=== PATIENT | female | born 1940 | race Caucasian/White ===

== ENCOUNTER → 2016-09-19 | Outpatient (CLI) | payer OTHER ==
[~2016-09-19] MED LIST: ACET500T57 PO; ASPI81TA28 PO; ATOR-24 PO; GLIP-197 PO; METO25TA56 PO; MISC4CAP PO; SITA50TA5
[2016-09-19 10:15] LABS: ALT/SGPT 32 U/L (12-78); BLOOD UREA NITROGEN 14 mg/dl (7-18); BUN/CREATININE RATIO 20.1 (10-20); CALCIUM 9.5 mg/dl (8.5-10.1); CARBON DIOXIDE 27 mmol/L (21-32); CHLORIDE 104 mmol/L (98-107); CHOLESTEROL 104 mg/dl (0-200); CREATININE 0.71 mg/dl (0.60-1.20); GLUCOSE 183 mg/dl (70-99); POTASSIUM 4.2 mmol/L (3.5-5.1); SODIUM 140 mmol/L (136-145)
[2016-09-19 10:18] LABS: ALB/GLOB RATIO 1.1 (0.9-2); ALKALINE PHOSPHATASE 52 U/L (45-117); AST/SGOT 37 U/L (15-37); ESTIMATED AVERAGE GLUCOSE 194 mg/dl; HA1C FLAG Normal (Normal); HDL CHOLESTEROL 35 mg/dl; LDL CHOLESTEROL CALCULATED 1 mg/dl; TRIGLYCERIDES 339 mg/dl (0-150); VERY LOW DENSITY LIPOPROT CALC 68 mg/dl
== END | disposition home or self-care (01) ==
LOC: C.LAB 08:01
PROVIDERS: ATTEND Family Medicine
DX: E11.9 Type 2 diabetes mellitus without complications (principal); E78.00 Pure hypercholesterolemia, unspecified; I10 Essential (primary) hypertension; C50.919 Malignant neoplasm of unspecified site of unspecified female breast

== ENCOUNTER → 2016-10-10 | Outpatient (CLI) | payer OTHER ==
--- NOTE | 2016-10-10 14:36 | MAMMOGRAPHY REPORT ---
UNILATERAL RIGHT DIGITAL DIAGNOSTIC MAMMOGRAM TOMOSYNTHESIS WITH CAD: 10/10/2016 CLINICAL HISTORY: Routine screening. Patient has no complaints. TECHNIQUE: Right breast tomosynthesis in addition to standard 2D mammography was performed. Current study was also evaluated with a Computer Aided Detection (CAD) system. COMPARISON: Comparison is made to exams dated: 04/11/2016 mammogram, 10/07/2015 mammogram, 5 ultrasound biopsy, 03/30/2015 mammogram, 03/18/2015 ultrasound, and 03/18/2015 mammogram - [facility]. BREAST COMPOSITION: There are scattered areas of fibroglandular density in the right breast. FINDINGS: There is expected architectural distortion and a central oil cyst at the site of prior bandar mpectomy in the approximate 3:00 middle one third of the right breast. Decreasing mild diffuse skin thickening of the right breast. No new suspicious mass, architectural distortion or cluster of heaven rocalcifications is seen. IMPRESSION: ACR BI-RADS CATEGORY 1: NEGATIVE Evolving post therapeutic changes in the right breast, without mammographic evidence of malignancy. Advise follow-up in March 2017 for annual bilateral screening exam. Can remain a diagnostic tracie ent in case any additional mammographic views and/or ultrasound are needed, given the personal histo ry of right breast cancer. These results and recommendations were discussed with the patient at the time of the exam. Approximately 10% of breast cancers are not detected with mammography. A negative mammographic repor t should not delay biopsy if a clinically suggestive mass is present. Madina Latham M.D. ay/:10/10/2016 12:46:53 Operator Prefinish: Shira ENCISO(Krysten)(Bienvenido), [facility] letter sent: Normal 1/2 BI-RADS Code: ACR BI-RADS Category 1: Negative
== END | disposition home or self-care (01) ==
LOC: C.MAMM 10:24
PROVIDERS: ATTEND Surgery
DX: Z85.3 Personal history of malignant neoplasm of breast (principal); Z08 Encounter for follow-up examination after completed treatment for malignant neoplasm

== ENCOUNTER → 2017-03-26 | Outpatient (CLI) | payer OTHER ==
[2017-03-26 09:36] LABS: BASO % 0.3 %; BASO ABS # 0.02 K/uL (0-0.2); COMPLETE YES; EOS % 0.6 %; HEMATOCRIT 45.1 % (37-47); IG% 0.3 %; LYMPH % 36.2 %; LYMPH ABS # 2.33 K/uL (1.2-3.4); MEAN CELL VOLUME 96.2 fL (80-100); MEAN CORPUSCULAR HEMOGLOBIN 31.6 pg (25-34); MEAN CORPUSCULAR HGB CONC 32.8 g/dl (32-36); MEAN PLATELET VOLUME 9.9 fL (7.4-10.4); MONO % 8.4 %; NEUT % 54.2 %; PLATELET COUNT 226 K/uL (130-400); RED BLOOD COUNT 4.69 M/uL (4.2-5.4); WHITE BLOOD COUNT 6.43 K/uL (4.8-10.8)
[2017-03-26 09:58] LABS: ALKALINE PHOSPHATASE 54 U/L (45-117); ALT/SGPT 25 U/L (12-78); AST/SGOT 29 U/L (15-37); BLOOD UREA NITROGEN 13 mg/dl (7-18); BUN/CREATININE RATIO 21.1 (10-20); CALCIUM 9.2 mg/dl (8.5-10.1); CARBON DIOXIDE 28 mmol/L (21-32); CHLORIDE 104 mmol/L (98-107); CHOLESTEROL 113 mg/dl (0-200); GLUCOSE 232 mg/dl (70-99); MAGNESIUM 1.6 mg/dl (1.8-2.4); POTASSIUM 3.7 mmol/L (3.5-5.1); SODIUM 139 mmol/L (136-145)
[2017-03-26 10:07] LABS: CHOLESTEROL/HDL RATIO 3.2; HDL CHOLESTEROL 35 mg/dl; LDL CHOLESTEROL CALCULATED 0 mg/dl; TRIGLYCERIDES 391 mg/dl (0-150); VERY LOW DENSITY LIPOPROT CALC 78 mg/dl
[2017-03-26 10:23] LABS: RATIO 25.4 mcg/mg (0-30.0)
[2017-03-26 11:05] LABS: ESTIMATED AVERAGE GLUCOSE 197 mg/dl; HA1C FLAG Normal (Normal)
== END | disposition home or self-care (01) ==
LOC: C.LAB 08:05
PROVIDERS: ATTEND Nurse Practitioner Family
DX: E11.9 Type 2 diabetes mellitus without complications (principal); E78.00 Pure hypercholesterolemia, unspecified; I10 Essential (primary) hypertension; M85.80 Other specified disorders of bone density and structure, unspecified site

== ENCOUNTER 2017-06-01 13:13 | Emergency (ER) | payer OTHER ==
[~2017-06-01] VITALS: Ht 152.4 cm; Wt 57.7 kg
[~2017-06-01 13:13] MED LIST changes: -EZET10TA63 PO; -NVLGI/PEN SQ; -RAMI10CA PO; -TAMO20TA9 PO
[2017-06-01 13:18] VITALS: TEMP 36.7; Ht 152.4 cm; Wt 57.7 kg
[2017-06-01] MEDS ORDERED: SODIUM CHLORIDE 0.9% 1000ML 1,000 ML IV STA (13:29)
[2017-06-01] MEDS ORDERED: NovoLIN-R INSULIN PER UNIT CHARGE IV STA ×2 (13:29→14:33)
--- NOTE | 2017-06-01 13:30 | EMERGENCY ROOM VISIT NOTE ---
History Report prepared by Olive: Zelalem Romero Under the Supervision of: Dr. Jc Marques M.D. First contact with patient: 13:19 Chief Complaint: HYPERGLYCEMIA Stated Complaint: HYPERGLYCEMIC Nursing Triage Summary: triage note: pt reports she had blood work done today and was called and told to come to ed for elevated blood glucose. pt reports she is a type 2 diabetic. History of Present Illness The patient is a 76 year old female who presents to the Emergency Room with complaints of constant hyperglycemia beginning this a few day ago. The patient states she has been recovering from a cold that began a week ago. She reports she has recovered from everything except the sorethroat. The patient notes she has been using cough drops and Chloraseptic. She states they have been helping except the cough drops were not sugar free. The patient reports she is also coughing up light yellow colored mucus. She notes her medications were changed 3 months ago because she was experiencing intermittent diarrhea. The patient's daughter states the diarrhea has been controlled, but it has caused an increase in the patient's blood sugar. She reports the patient has had an increased urine output and feels a tingling sensation when urinating. The daughter notes the patient was evaluated by her oncologist today for a check and was told she lost 18 pounds over the past four months, her blood sugar was 428, and she needs to go the ED. The patient states she received her flu shot, and she denies abdominal pain. Source of History: patient Onset: a few days ago Position: other (global) Quality: other (hyperglycemia - BS of 428) Timing: constant Associated Symptoms: + sorethroat (feels better with cough drops and Chloraseptic), + cough (yellow mucus), + urinary symptoms (more frequent and tingling), No abdominal pain Note: Associated symptoms: weight loss Review of Systems See HPI for pertinent positives & negatives. A total of 10 systems reviewed and were otherwise negative. Past Medical & Surgical Medical Problems: (1) Diabetes Family History Cancer Diabetes mellitus Heart disease Hypertension Lung disease Social History Smoking Status: Never Smoker Alcohol Use: occasionally Marital Status: Occupation Status: retired Current/Historical Medications Scheduled Aspirin (Aspirin Ec), 81 MG PO HS Atorvastatin (Lipitor), 40 MG PO HS Ezetimibe (Zetia), 10 MG PO DAILY Glipizide (Glipizide Er), 1 TAB PO DAILY Insulin Aspart (Novolog Flexpen), Unknown Dose SQ AMPM Ramipril (Ramipril), 1 CAP PO DAILY Tamoxifen (Nolvadex), 20 MG PO DAILY Scheduled PRN Acetaminophen (Acetaminophen), 500 MG PO BID PRN for Pain Allergies Coded Allergies: Latex1 -Allergic Contact Dermititis (Verified Allergy, Mild, RASH, ) Physical Exam Vital Signs Date Time Temp Pulse Resp B/P (MAP) Pulse Ox O2 Delivery O2 Flow Rate FiO2 06/01/17 15:37 92 20 130/71 93 Room Air 06/01/17 15:06 90 20 131/67 96 Room Air 06/01/17 14:00 98 06/01/17 13:56 94 Room Air 06/01/17 13:56 94 Room Air 06/01/17 13:18 36.7 122 20 127/73 91 Room Air Physical Exam GENERAL: Patient is a healthy-appearing well-nourished 76 year old female. HEAD: Normocephalic atraumatic EYES: Ocular movements intact pupils equal and react to light OROPHARYNX mucous membranes are moist no exudates present no erythema or edema present NECK: Supple no nuchal rigidity CHEST: Good equal expansion LUNGS: Clear and equal to auscultation CARDIAC: Normal S1 and S2 ABDOMEN: Soft nontender no guarding BACK: No CVA tenderness EXTREMITIES: No pain upon palpation normal muscle strength in all groups no clubbing cyanosis or edema NEURO: Patient is following commands and answering questions appropriately. Alert and oriented x3 Cranial Nerves 2-12 grossly intact Medical Decision & Procedures ER Provider Diagnostic Interpretation: X-ray results as stated below per interpretation by me and the radiologist: CHEST ONE VIEW PORTABLE HISTORY: Atypical CHEST PAIN COMPARISON: None. FINDINGS: The lungs are clear. The heart is normal in size. No pleural effusions. No pneumothorax. Cervical spinal fusion hardware is noted. IMPRESSION: No acute process. Electronically signed by: Boubacar Laguna M.D. 06/01/2017 2:22 PM Dictated Date/Time: 06/01/2017 2:21 PM Laboratory Results 06/01/17 13:46 Red Blood Count 4.79, Mean Corpuscular Volume 93.9, Mean Corpuscular Hemoglobin 32.4, Mean Corpuscular Hemoglobin Concent 34.4, Mean Platelet Volume 10.1, Neutrophils (%) (Auto) 60.1, Lymphocytes (%) (Auto) 31.1, Monocytes (%) (Auto) 8.1, Eosinophils (%) (Auto) 0.2, Basophils (%) (Auto) 0.3, Neutrophils # (Auto) 4.01, Lymphocytes # (Auto) 2.07, Monocytes # (Auto) 0.54, Eosinophils # (Auto) 0.01, Basophils # (Auto) 0.02 06/01/17 13:46 Test 06/01/17 13:46 06/01/17 13:52 06/01/17 14:10 06/01/17 15:34 White Blood Count 6.66 K/uL (4.8-10.8) Red Blood Count 4.79 M/uL (4.2-5.4) Hemoglobin 15.5 g/dL (12.0-16.0) Hematocrit 45.0 % (37-47) Mean Corpuscular Volume 93.9 fL (80-100) Mean Corpuscular Hemoglobin 32.4 pg (25-34) Mean Corpuscular Hemoglobin Concent 34.4 g/dl (32-36) Platelet Count 159 K/uL (130-400) Mean Platelet Volume 10.1 fL (7.4-10.4) Neutrophils (%) (Auto) 60.1 % Lymphocytes (%) (Auto) 31.1 % Monocytes (%) (Auto) 8.1 % Eosinophils (%) (Auto) 0.2 % Basophils (%) (Auto) 0.3 % Neutrophils # (Auto) 4.01 K/uL (1.4-6.5) Lymphocytes # (Auto) 2.07 K/uL (1.2-3.4) Monocytes # (Auto) 0.54 K/uL (0.11-0.59) Eosinophils # (Auto) 0.01 K/uL (0-0.5) Basophils # (Auto) 0.02 K/uL (0-0.2) RDW Standard Deviation 44.2 fL (36.4-46.3) RDW Coefficient of Variation 12.8 % (11.5-14.5) Immature Granulocyte % (Auto) 0.2 % Immature Granulocyte # (Auto) 0.01 K/uL (0.00-0.02) Est Creatinine Clear Calc Drug Dose 53.0 ml/min Estimated GFR () 93.4 Estimated GFR (Non- 80.6 BUN/Creatinine Ratio 25.4 (10-20) Estimated Average Glucose 338 mg/dl Hemoglobin A1c 13.4 % (4.5-5.6) Calcium Level 9.5 mg/dl (8.5-10.1) Total Bilirubin 0.4 mg/dl (0.2-1) Direct Bilirubin mg/dl (0-0.2) Aspartate Amino Transf (AST/SGOT) 25 U/L (15-37) Alanine Aminotransferase (ALT/SGPT) 24 U/L (12-78) Alkaline Phosphatase 59 U/L (45-117) Total Protein 7.1 gm/dl (6.4-8.2) Albumin 3.3 gm/dl (3.4-5.0) Lipase 370 U/L (73-393) Beta-Hydroxybutyric Acid 9.39 mg/dL (0.2-2.81) Chemistry Specimen Hemolysis Bedside Hemoglobin 16.0 g/dl (12.0-16.0) Bedside Hematocrit 47 % (37-47) Bedside Sodium 135 mEq/L (135-144) Bedside Potassium 4.1 mEq/L (3.3-5.0) Bedside Chloride 96 mEq/L (101-112) Bedside Total CO2 26 mEq/l (24-31) Anion Gap 18.0 mmol/L (16-25) Bedside Blood Urea Nitrogen 18 mg/dl (7-18) Bedside Creatinine 0.5 mg/dl (0.6-1.3) Bedside Glucose (other) 467 mg/dl (70-99) Bedside Ionized Calcium (Chely) 1.27 mmol/l (1.12-1.32) Arterial Blood pH 7.42 (7.35-7.45) Arterial Blood Partial Pressure CO2 40 mmHg (35-46) Arterial Blood Partial Pressure O2 81 mm/Hg (80-95) Arterial Blood HCO3 25 mmol/L (19-24) Arterial Blood Oxygen Saturation 96.0 % (90-95) Arterial Blood Base Excess 0.7 mEq/L (-9-1.8) Arterial Blood Gas Delivery RA Leroy Test POS (POS) Bedside Glucose 227 mg/dl (70-90) Labs reviewed by ED physician. Medications Administered Medications (Trade) Dose Ordered Sig/Missy Route Start Time Stop Time Status Last Admin Dose Admin Sodium Chloride 1,000 ml @ 999 mls/hr Q1H1M STAT IV 06/01/17 13:29 06/01/17 14:29 DC 06/01/17 13:49 999 MLS/HR Insulin Human Regular (novoLIN-R U-100 PER UNIT) 10 units NOW STAT IV 06/01/17 13:29 06/01/17 13:32 DC 06/01/17 13:49 10 UNITS Insulin Human Regular (novoLIN-R U-100 PER UNIT) 10 units NOW STAT IV 06/01/17 14:33 06/01/17 14:34 DC 06/01/17 15:05 10 UNITS ECG Indication: other (hyperglycemia) Rate (beats per minute): 100 Rhythm: normal sinus Findings: no acute ischemic change, no ectopy, other (old inferior infarct) ED Course 1322: Past medical records reviewed. The patient was evaluated in room B10. A complete history and physical examination was performed. 1329: Ordered Insulin Human Regular 10 units IV, Sodium Chloride 1000 ml @ 999 mls/hr IV 1433: Ordered Insulin Human Regular 10 units IV 1458: Upon reexamination the patient is resting comfortably. I discussed results and treatment plan with the patient. She verbalizes agreement and understanding. I also spoke with case management and the patient on trying to get her into be evaluated by Dr. Daigle, Endocrinology The patient is ready for discharge. Medical Decision Differential diagnosis: Etiologies such as metabolic, infection, hypo/hyperglycemia, electrolyte abnormalities, cardiac sources, intracerebral event, toxicologic, neurologic, as well as others were entertained. This is a 76-year-old female who presents emergency department complaining of hyperglycemia. The patient denies any other weakness. She follows up with her primary care physician for her diabetes. An IV was established, patient given normal saline bolus. The patient was given 2 doses of insulin here in the emergency department. Repeat examination revealed her blood sugar to be falling. The patient is not in DKA based on these findings I felt that she can be safely discharged home. I did discuss this case with case management to get the patient into Dr. Remy's office. Patient and family were in agreement with the treatment plan. Medication Reconcilliation Current Medication List: was personally reviewed by me Blood Pressure Screening Patient's blood pressure: Normal blood pressure Blood pressure disposition: Did not require urgent referral Impression Primary Impression: Hyperglycemia Scribe Attestation The scribe's documentation has been prepared under my direction and personally reviewed by me in its entirety. I confirm that the note above accurately reflects all work, treatment, procedures, and medical decision making performed by me. Departure Information Dispostion Home / Self-Care Referrals Daniel Juan III, CRNP (PCP) Forms HOME CARE DOCUMENTATION FORM, IMPORTANT VISIT INFORMATION, WORK / SCHOOL INSTRUCTIONS Patient Instructions ED Hyperglycemia Diabetic, Hyperglycemia Steps, My [facility] Additional Instructions Follow up with DR Daigle's office Avoid sugar cough drops You have been examined and treated today on an emergency basis only. This is not a substitute for, or an effort to provide, complete comprehensive medical care. It is impossible to recognize and treat all injuries or illnesses in a single emergency department visit. It is therefore important that you follow up closely with your PCP. Call as soon as possible for an appointment. Thank you for your time and consideration. I look forward to speaking with you again soon. Please don't hesitate to call us if you have any questions.
[2017-06-01 13:56] VITALS: O2SAT 94
[2017-06-01 14:00] LABS: BASO % 0.3 %; BASO ABS # 0.02 K/uL (0-0.2); COMPLETE YES; EOS % 0.2 %; IG% 0.2 %; LYMPH % 31.1 %; LYMPH ABS # 2.07 K/uL (1.2-3.4); MEAN CELL VOLUME 93.9 fL (80-100); MEAN CORPUSCULAR HEMOGLOBIN 32.4 pg (25-34); MEAN CORPUSCULAR HGB CONC 34.4 g/dl (32-36); MEAN PLATELET VOLUME 10.1 fL (7.4-10.4); MONO % 8.1 %; NEUT % 60.1 %; PLATELET COUNT 159 K/uL (130-400); RED BLOOD COUNT 4.79 M/uL (4.2-5.4); WHITE BLOOD COUNT 6.66 K/uL (4.8-10.8)
[2017-06-01 14:04] LABS: ISTAT CREATININE 0.5 mg/dl (0.6-1.3); ISTAT IONIZED CALCIUM 1.27 mmol/l (1.12-1.32)
[2017-06-01 14:11] LABS: ESTIMATED AVERAGE GLUCOSE 338 mg/dl; HA1C FLAG Normal (Normal)
--- NOTE | 2017-06-01 14:24 | DIAGNOSTIC IMAGING REPORT ---
CHEST ONE VIEW PORTABLE HISTORY: Atypical CHEST PAIN COMPARISON: None. FINDINGS: The lungs are clear. The heart is normal in size. No pleural effusions. No pneumothorax. Cervical spinal fusion hardware is noted. IMPRESSION: No acute process. Electronically signed by: Boubacar Laguna M.D. 06/01/2017 2:22 PM Dictated Date/Time: 06/01/2017 2:21 PM
[2017-06-01 14:32] LABS: ALKALINE PHOSPHATASE 59 U/L (45-117); ALT/SGPT 24 U/L (12-78); AST/SGOT 25 U/L (15-37); BLOOD UREA NITROGEN 19 mg/dl (7-18); BUN/CREATININE RATIO 25.4 (10-20); CALCIUM 9.5 mg/dl (8.5-10.1); CARBON DIOXIDE 27 mmol/L (21-32); CHLORIDE 97 mmol/L (98-107); CREATININE 0.73 mg/dl (0.60-1.20); GLUCOSE 468 mg/dl (70-99); SODIUM 130 mmol/L (136-145)
[2017-06-01 14:43] LABS: BETA-HYDROXYBUTYRATE 9.39 mg/dL (0.2-2.81)
[2017-06-01 14:44] LABS: ALLEN TEST POS (POS); ARTERIAL BLOOD GAS BASE EXCESS 0.7 mEq/L (-9-1.8); ARTERIAL BLOOD GAS HCO3 25 mmol/L (19-24); ARTERIAL BLOOD GAS PO2 81 mm/Hg (80-95); ARTERIAL BLOOD GAS pH 7.42 (7.35-7.45); O2 ADMINISTRATION RA
[2017-06-01] MEDS ORDERED: EZET10TA63 PO (14:52)
[2017-06-01] MEDS ORDERED: RAMI10CA PO (14:52)
[2017-06-01] MEDS ORDERED: TAMO20TA9 PO (14:52)
[2017-06-01] MEDS ORDERED: GLIP-197 PO (14:52)
[2017-06-01] MEDS ORDERED: NVLGI/PEN SQ (14:59)
[2017-06-01 15:37] VITALS: BP 130/71; PULSE 92; O2SAT 93
== END 2017-06-01 15:47 | disposition home or self-care (01) ==
LOC: C.EDB 13:14
DX: E11.65 Type 2 diabetes mellitus with hyperglycemia (principal); R35.0 Frequency of micturition; R19.7 Diarrhea, unspecified; R63.4 Abnormal weight loss; Z79.82 Long term (current) use of aspirin; Z79.4 Long term (current) use of insulin; Z83.3 Family history of diabetes mellitus; Z82.49 Family history of ischemic heart disease and other diseases of the circulatory system; Z83.6 Family history of other diseases of the respiratory system

== ENCOUNTER → 2017-06-01 | Outpatient (CLI) | payer OTHER ==
[~2017-06-01] MED LIST changes: -ACET500T57 PO; +ACET500T58 PO; +EZET10TA63 PO; +NVLGI/PEN SQ; +RAMI10CA PO; +TAMO20TA9 PO
[2017-06-01 11:16] LABS: ESTIMATED AVERAGE GLUCOSE 335 mg/dl; HA1C FLAG Normal (Normal)
[2017-06-01 11:18] LABS: BLOOD UREA NITROGEN 17 mg/dl (7-18); BUN/CREATININE RATIO 23.4 (10-20); CALCIUM 9.7 mg/dl (8.5-10.1); CARBON DIOXIDE 26 mmol/L (21-32); CHLORIDE 96 mmol/L (98-107); CREATININE 0.72 mg/dl (0.60-1.20); GLUCOSE 424 mg/dl (70-99); POTASSIUM 3.9 mmol/L (3.5-5.1); SODIUM 131 mmol/L (136-145); TRIGLYCERIDES 679 mg/dl (0-150)
== END | disposition home or self-care (01) ==
LOC: C.LABBC 08:19
PROVIDERS: ATTEND Nurse Practitioner Family
DX: E11.9 Type 2 diabetes mellitus without complications (principal)

== ENCOUNTER → 2017-09-02 | Outpatient (CLI) | payer OTHER ==
[~2017-09-02] MED LIST changes: +EZET10TA63 PO; -METO25TA56 PO; -MISC4CAP PO; +NVLGI/PEN SQ; +RAMI10CA PO; -SITA50TA5; +TAMO20TA9 PO
[2017-09-02 10:12] LABS: HEMOGLOBIN A1C 12.7 % (4.5-5.6)
[2017-09-02 14:41] LABS: CREATININE RANDOM URINE 68.1 mg/dl
== END | disposition home or self-care (01) ==
LOC: C.LAB 07:50
PROVIDERS: ATTEND Nurse Practitioner Family
DX: E11.65 Type 2 diabetes mellitus with hyperglycemia (principal)

== ENCOUNTER → 2017-10-17 | Outpatient (CLI) | payer OTHER ==
--- NOTE | 2017-10-17 12:41 | MAMMOGRAPHY REPORT ---
UNILATERAL RIGHT DIGITAL DIAGNOSTIC MAMMOGRAM TOMOSYNTHESIS WITH CAD AND TARGETED RIGHT ULTRASOUND: CLINICAL HISTORY: The patient reports one episode of pain approximately 3 weeks ago. After she had t he pain, she did a self breast exam and noticed a lump in the right lateral breast. History of right breast cancer status post lumpectomy in 2014. TECHNIQUE: Breast tomosynthesis in addition to standard 2D mammography was performed. Current study was also evaluated with a Computer Aided Detection (CAD) system. Right CC and MLO 2D and tomosynthes is images were obtained. COMPARISON: Comparison is made to exams dated: 10/10/2016 mammogram, 04/11/2016 mammogram, 10/07/2015 mammogram, 03/30/2015 ultrasound biopsy, 03/30/2015 mammogram, and 03/18/2015 ultrasound - [facility]. BREAST COMPOSITION: There are scattered areas of fibroglandular density in the right breast. FINDINGS: A triangle marker wright the site of the palpable lump in the right upper outer quadrant. N o suspicious masses or other suspicious mammographic abnormalities are noted in this region. The rem ainder of the right breast is stable compared to prior exams, without suspicious masses, calcificatio ns, or areas of architectural distortion noted. There are stable postsurgical changes in the right m edial breast from prior lumpectomy, including stable architectural distortion as well as a circumscri bed 13 mm round fat density mass at the lumpectomy bed consistent with fat necrosis. Targeted ultrasound was performed of the area of the palpable lump pointed out by the patient, in the right breast at approximately 9:30, centered around 10 cm from the nipple with the patient in the ob lique position. Sonographically normal tissue is seen in this region, without evidence of a mass or other suspicious sonographic abnormality. IMPRESSION: ACR BI-RADS CATEGORY 2: BENIGN, TARGETED ULTRASOUND ACR BI-RADS CATEGORY 2: BENIGN No suspicious mammographic or sonographic abnormality at the site of the palpable right breast lump p ointed out by the patient. There is no mammographic or targeted sonographic evidence of malignancy. Recommend clinical follow-up for the palpable right breast lump; any decision to biopsy should be ba sed on clinical assessment. Also recommend routine bilateral screening mammograms which are due 2017. The patient has been verbally notified of the results. Approximately 10% of breast cancers are not detected with mammography. A negative mammographic report should not delay biopsy if a clinically suggestive mass is present. Radha Saxena M.D. ah/:10/17/2017 11:10:39 Counter Clerk [employer]: Gay WHITING)([place]ienvenido), [facility] letter sent: Normal 1/2 BI-RADS Code: ACR BI-RADS Category 2: Benign Ultrasound BI-RADS: ACR BI-RADS Category 2: Benign
== END | disposition home or self-care (01) ==
LOC: C.MAMM 10:35
PROVIDERS: ATTEND Nurse Practitioner Family
DX: N63.10 Unspecified lump in the right breast, unspecified quadrant (principal); N64.4 Mastodynia

== ENCOUNTER 2020-08-30 14:37 | Observation (INO) ==
[2020-08-30] MEDS ORDERED: KETOROLAC TROMETHAMINE 15 MG/ML VIAL IV ONE (16:20)
[2020-08-30] MEDS ORDERED: FAMOTIDINE 20MG IV PUSH 20 MG/5 ML SYR IV STA (16:20)
[2020-08-30] MEDS ORDERED: SODIUM CHLORIDE 0.9% 1000ML 500 ML IV ONE (16:20)
--- NOTE | 2020-08-30 16:56 | Emergency Department Note ---
Impression & Plan Abdominal pain, epigastric, Nausea & vomiting, Duodenal ulcer ED Provider Note Provider: Saqib Amin MD DATE OF SERVICE: 08/30/2020 CHIEF COMPLAINT: Upper abdominal pain HISTORY OF PRESENT ILLNESS: Patient is a 79-year-old female with a history of type 2 diabetes, hypertension, and some dementia presenting here today due to difficulty eating. Evidently has been somewhat shaky and not eating and vomiting if she does eats and complaining of pain in the epigastrium radiating to her back. Is been ongoing for just over a week and was seen by her PCP last week. Patient is not the best historian due to some memory issues. Had recent blood work, urine sample collected, and an ultrasound. Urine questionable for UTI but ultrasound did not show significant findings and was referred here for further evaluation. Has been on an antibiotic for the urinalysis that was questionable yesterday but culture was not growing specific organism. Patient self complains predominantly of some epigastric discomfort and denies nausea to be. Denies chest pain or significant shortness of breath. States the pain goes straight through to her back. Denies falls or syncope. Did later call and discussed with the patient's daughter via phone reports that the patient's had abdominal and back symptoms for approximately 2-1/2 weeks variable in nature. Some nausea is been reported during that time and some vomiting since yesterday. Has had some period of low blood sugars do decreased intake and while still taking her insulin. She reports that the patient's has actually lived with her for several years and does have some memory issues. States the patient had very poor p.o. intake the last several days and has some concerns regarding this. Patient's daughter also reports she is come down with a fever and is feeling unwell at home with a Covid test scheduled for tomorrow. She reports that the patient continues to smoke and exercises minimally spending most the day in bed. REVIEW OF SYSTEMS: A total of 10 review of systems was obtained and negative except as stated above in the HPI. PAST MEDICAL HISTORY: As noted above MEDICATIONS: Reviewed home medication list and is on aspirin SOCIAL HISTORY: Currently lives with daughter and son-in-law, smoker, retired nurse PHYSICAL EXAM: GENERAL: alert and oriented to person and location in no acute distress on stretcher, but somewhat hazy regarding recent events/details Head: normocephalic and atraumatic EYES: No injection, discharge or icterus. NECK: Trachea midline. Supple. ENT: Mucous membranes pink and moist. LUNGS: Airway patent. No retractions. Breath sounds clear with good air entry bilaterally. HEART: Regular rate and rhythm. No chest wall tenderness ABDOMEN: Soft minimal to no epigastric tenderness, without guarding or rebound. No masses appreciated on exam SKIN: Acyanotic, warm, dry, without rashes EXTREMITIES: Without swelling, tenderness or deformity NEUROLOGICAL: No focal deficits. No aphasia. No facial droop or slurred speech. Normal strength and tone in the extremities. Sensation to gross touch normal. Patient does have some short-term memory deficits EK bpm normal sinus rhythm. No PVC or PAC. No acute ST segment elevation. T wave flattening in lead III. QTc 453. CONTINUOUS CARDIAC MONITORING: was ordered and showed a heart rate of 95 bpm in normal sinus rhythm Patient's laboratory studies and imaging reviewed. Differential includes PE, ACS, appendicitis, infections, diverticulitis, UTI, obstruction, mesenteric ischemia, aortic pathology, inflammatory bowel disease, renal colic, PUD, pancreatitis, biliary pathology, hernia, volvulus, constipation, as well as other pathologies. IMPRESSION/MEDICAL DECISION MAKING: Patient presents with a week of epigastric symptoms some nausea and vomiting related from notes but the patient herself does not recall this. Patient still has some dementia is not the best historian. No significant peritonitis or significant upper abdominal tenderness. Blood work from last week and ultrasound was reviewed. Urinalysis yesterday was questionable with epithelial cells and a mixed culture growing today unsure if this is truly related to symptoms. Given her discomfort given some Pepcid and 10mg Toradol as well as IV fluid here to help with symptom control. CT the abdomen pelvis as well as CT of the chest exclude PE we completed given the somewhat difficult in obtaining history here in the epigastric location of her symptoms. No fever or URI symptoms are reported and lower suspicion at this time for acute coronavirus infection. Patient appears nontoxic is afebrile here on room air. CT the chest with no acute PE or acute process within the chest noted. CT abdomen pelvis questions inflammation of the second portion of the duodenum with hyperemia suggestive of peptic ulcer disease without extraluminal gas or perforation reported. There was a 2.3 cm gas and fluid collection in an outpouching that could reflect a diverticulum or ulcer. No biliary dilation was noted status post cholecystectomy per the radiology report. Laboratory studies with white blood cell count 11.87. Hemoglobin is normal. Renal function e lectrolytes within normal limits. Bilirubin is normal and LFTs normal. Lipase within normal limits. Question if her symptoms are secondary to peptic ulcer disease the patient has been on aspirin but no significant alcohol use. No concerning findings for acute GI bleed at this point or acute perforation the patient is nonperitoneal. Discussed findings with the patient. Did discuss with the patient's daughter via phone with her permission given her memory status.. Given IV dose of Protonix here. Given some Zofran IV fluids. Discussed with daughter regarding plan of care as well. In discussion with the daughter and later with the patient feel that further observation here even her significant peptic ulcer disease noted as well as her episodes of hypoglycemia and decreased oral intake with vomiting over the last day would be reasonable. Hospitalist contacted. Covid negative. DIAGNOSIS: Peptic ulcer disease DISPOSITION: Hospitalist will evaluate Patient was agreeable with this plan. Past Med/Surg History Medical History Anxiety Diverticulosis History of infiltrating ductal carcinoma of breast Surgical History H/O foot surgery H/O neck surgery H/O: hysterectomy History of tonsillectomy and adenoidectomy Hx of cholecystectomy S/P lumpectomy, right breast Family History Father Esophageal cancer Family/Other Diabetes Grandfather (Maternal) Diabetes Brother Diabetes Cancer Grandmother (Paternal) Coronary heart disease Grandfather (Paternal) Myocardial infarction Unknown Breast cancer Daughter Breast cancer Mother No known health problems Dementia Denies family history of Ovarian cancer Prostate cancer Colorectal cancer Social History Smoking Status: Current every day smoker Tobacco Type: Cigarettes Age Started Using Tobacco: 21; packs per day: 0.5; Years Smoked: 60; Cigarettes Per Day: 5 cigarettes a day; Second Hand Exposure: Yes; Hx Alcohol Use: Yes Alcohol type: wine Alcohol Intake Frequency: 2-3 x/Week Alcohol Intake Frequency Comment: one drink Hx Substance Use: No Preferred Language: Serbian Communication Ability: Effective Visual Impairment: No Limitations Hearing Ability: Normal marital status: Current Living Situation: Family Current Living Situation Comment: lives with daughter current occupational status: retired 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 Feels Safe at Home: Yes Childhood Exposure to Second-Hand Smoke: Yes Dental Care, Regularly: Yes Physical Activity Frequency: Does not Exercise Seatbelt Use: always Sunscreen Use: No Allergies Allergies Allergy/AdvReac Type Severity Reaction Status Date / Time latex Allergy Mild RASH Verified 08/30/20 17:11 Codeine Derivatives Allergy Unknown Unknown Uncoded 08/30/20 17:11 Home Meds Home Medications Medication Instructions Recorded Confirmed acetaminophen 500 mg tablet 500 mg PO Q6H PRN tab 02/11/19 08/30/20 aspirin 81 mg tablet,delayed 81 mg PO DAILY tab 02/11/19 08/30/20 release cyanocobalamin (vitamin B-12) 1,000 mcg PO DAILY cap 02/11/19 08/30/20 1,000 mcg capsule calcium carbonate 600 mg (1,500 1 cap PO BID cap 05/26/20 08/30/20 mg)-vitamin D3 500 unit capsule psyllium husk 0.4 gram capsule 0.4 g PO DAILY 05/26/20 08/30/20 amoxicillin 2,000 mg PO ONCE PRN 08/30/20 08/30/20 Previous Rx's Medication Instructions Recorded OneTouch Delica Lancets 33 gauge #200 ea NS 01/20/20 alendronate 70 mg tablet 70 mg PO WK #12 tab 01/20/20 pen needle, diabetic 32 gauge x #200 ea 01/20/20" OneTouch Verio test strips #200 ea NS 04/13/20 metformin 500 mg tablet,extended 500 mg PO DAILY 90 Days #90 tab 05/19/20 release 24 hr blood-glucose sensor #3 ea 07/06/20 blood-glucose transmitter #1 ea 07/06/20 ezetimibe 10 mg tablet 10 mg PO DAILY #90 tab 07/20/20 atorvastatin 40 mg tablet 40 mg PO DAILY #90 tab 08/10/20 diclofenac sodium 1 % topical gel 2 g TOPICAL DAILY #100 g 08/10/20 diclofenac sodium 50 mg 50 mg PO Q12H PRN #90 tab 08/10/20 tablet,delayed release donepezil 5 mg tablet 5 mg PO DAILY #90 tab 08/10/20 ramipril 10 mg capsule 10 mg PO BID #90 cap 08/10/20 tamoxifen 20 mg tablet 20 mg PO DAILY #90 tab 08/10/20 Novolog Mix 70-30 FlexPen U-100 See Rx Instructions SQ .COMPLEX 08/24/20 Insulin 100 unit/mL subcutaneous #15 ml NS pen tramadol 50 mg tablet 50 mg PO .COMPLEX PRN #20 tab 08/24/20 ondansetron 8 mg disintegrating 8 mg PO Q8H PRN #20 tab 08/29/20 tablet sulfamethoxazole 800 1 tab PO Q12H 10 Days #20 tab 08/29/20 mg-trimethoprim 160 mg tablet Results & Data (ED) Vital Signs Vital Signs - 24 hr 08/30/20 14:43 08/30/20 15:59 08/30/20 16:48 Temperature 35.8 C L Temperature Source Temporal Artery Scan Pulse Rate 79 93 H Pulse Rate [Right Finger] 101 H Pulse Rate from SpO2 Sensor 89 Pulse Rhythm [Right Finger] Regular Pulse Strength [Right Finger] Normal Respiratory Rate 18 18 16 Respiratory Effort / Characteristics Non-Labored Spontaneous Non-Labored Respiratory Depth Normal Normal Blood Pressure 105/68 163/72 H Blood Pressure [Right Arm] 137/83 Blood Pressure Mean 80 102 Blood Pressure Mean [Right Arm] 101 Blood Pressure Position Sitting Pulse Oximetry 97 97 90 Oxygen Delivery Method Room Air Room Air Sepsis Recent Fever Within 48 Hours No Sepsis New/Unexplained Change in Mental Status No Sepsis Action Taken by Nursing No Action Required 08/30/20 16:49 08/30/20 17:00 08/30/20 17:01 Temperature Temperature Source Pulse Rate 95 H 99 H 93 H Pulse Rate [Right Finger] 90 Pulse Rate from SpO2 Sensor 96 H Pulse Rhythm [Right Finger] Pulse Strength [Right Finger] Respiratory Rate 13 18 16 Respiratory Effort / Characteristics Respiratory Depth Blood Pressure 150/79 H Blood Pressure [Right Arm] 150/79 H Blood Pressure Mean 102 Blood Pressure Mean [Right Arm] 102 Blood Pressure Position Pulse Oximetry 92 97 Oxygen Delivery Method Room Air Sepsis Recent Fever Within 48 Hours Sepsis New/Unexplained Change in Mental Status Sepsis Action Taken by Nursing 08/30/20 17:51 08/30/20 17:57 08/30/20 18:00 Temperature Temperature Source Pulse Rate 107 H 94 H Pulse Rate [Right Finger] Pulse Rate from SpO2 Sensor 94 H Pulse Rhythm [Right Finger] Pulse Strength [Right Finger] Respiratory Rate 24 17 Respiratory Effort / Characteristics Respiratory Depth Blood Pressure Blood Pressure [Right Arm] Blood Pressure Mean Blood Pressure Mean [Right Arm] Blood Pressure Position Pulse Oximetry 95 94 Oxygen Delivery Method Room Air Sepsis Recent Fever Within 48 Hours Sepsis New/Unexplained Change in Mental Status Sepsis Action Taken by Nursing 08/30/20 18:01 08/30/20 18:30 08/30/20 19:00 Temperature Temperature Source Pulse Rate 92 H 91 H 97 H Pulse Rate [Right Finger] Pulse Rate from SpO2 Sensor 92 H 91 H Pulse Rhythm [Right Finger] Pulse Strength [Right Finger] Respiratory Rate 16 17 23 Respiratory Effort / Characteristics Respiratory Depth Blood Pressure 157/63 H Blood Pressure [Right Arm] Blood Pressure Mean 94 Blood Pressure Mean [Right Arm] Blood Pressure Position Pulse Oximetry 94 84 L Oxygen Delivery Method Sepsis Recent Fever Within 48 Hours Sepsis New/Unexplained Change in Mental Status Sepsis Action Taken by Nursing 08/30/20 19:30 Temperature Temperature Source Pulse Rate 88 Pulse Rate [Right Finger] Pulse Rate from SpO2 Sensor Pulse Rhythm [Right Finger] Pulse Strength [Right Finger] Respiratory Rate 19 Respiratory Effort / Characteristics Respiratory Depth Blood Pressure Blood Pressure [Right Arm] Blood Pressure Mean Blood Pressure Mean [Right Arm] Blood Pressure Position Pulse Oximetry Oxygen Delivery Method Sepsis Recent Fever Within 48 Hours Sepsis New/Unexplained Change in Mental Status Sepsis Action Taken by Nursing Laboratory Data Result diagrams: 08/30/20 16:40 08/30/20 16:40 Lab Results 08/30/20 08/30/20 08/30/20 Range/Units 16:40 16:40 16:40 WBC 11.87 H (4.8-10.8) K/uL RBC 4.18 L (4.2-5.4) M/uL Hgb 13.6 (12.0-16.0) g/dL Hct 39.8 (37-47) % MCV 95.2 (80-100) fL MCH 32.5 (25-34) pg MCHC 34.2 (32-36) g/dL RDW Std Deviation 42.9 (36.4-46.3) fL RDW Coeff of Farhan 12.4 (11.5-14.5) % Plt Count 374 (130-400) K/uL MPV 9.1 (7.4-10.4) fL Immature Gran % (Auto) 0.1 % Neut % (Auto) 80.4 % Lymph % (Auto) 13.6 % Fisher % (Auto) 5.7 % Eos % (Auto) 0.0 % Baso % (Auto) 0.2 % Neut # (Auto) 9.55 H (1.4-6.5) K/uL Lymph # (Auto) 1.61 (1.2-3.4) K/uL Fisher # (Auto) 0.68 H (0.11-0.59) K/uL Eos # (Auto) 0.00 (0-0.5) K/uL Baso # (Auto) 0.02 (0-0.2) K/uL Immature Gran # (Auto) 0.01 (0.00-0.02) K/uL PT 10.7 (9.0-12.0) Seconds INR 1.1 (0.9-1.1) Sodium 137 (136-145) mmol/L Potassium 3.8 (3.5-5.1) mmol/L Chloride 99 (98-107) mmol/L Carbon Dioxide 29 (21-32) mmol/L Anion Gap 9.0 (3-11) BUN 16 (7-18) mg/dl Creatinine 0.76 (0.6-1.2) mg/dl Est Cr Clr Drug Dosing 43.8 ml/min Est GFR ( Amer) 87.1 Est GFR (Non-Af Amer) 75.1 BUN/Creatinine Ratio 20.9 H (10-20) Glucose 160 H (70-99) mg/dl Calcium 10.6 H (8.5-10.1) mg/dl Total Bilirubin 0.4 (0.2-1) mg/dl AST 15 (15-37) U/L ALT 20 (12-78) U/L Alkaline Phosphatase 43 L (45-117) U/L Troponin I < 0.015 (0-0.045) ng/ml Total Protein 7.4 (6.4-8.2) gm/dl Albumin 3.3 L (3.4-5.0) gm/dl Globulin 4.1 H (2.5-4.0) gm/dl Albumin/Globulin Ratio 0.8 L (0.9-2) Lipase 98 (73-393) U/L Urine Color Urine Appearance (Clear) Urine pH (4.5-7.5) Ur Specific [place] (1.000-1.030) Urine Protein (Negative) Urine Glucose (UA) (Negative) Urine Ketones (Negative) Urine Blood (Negative) Urine Nitrite (Negative) Urine Bilirubin (Negative) Urine Urobilinogen (Negative) Ur Leukocyte Esterase (Negative) COVID-19 Eval Order SARS-CoV-2, RNA, NAAT (NEGATIVE) 08/30/20 08/30/20 08/30/20 Range/Units 17:50 19:21 19:21 WBC (4.8-10.8) K/uL RBC (4.2-5.4) M/uL Hgb (12.0-16.0) g/dL Hct (37-47) % MCV (80-100) fL MCH (25-34) pg MCHC (32-36) g/dL RDW Std Deviation (36.4-46.3) fL RDW Coeff of Farhan (11.5-14.5) % Plt Count (130-400) K/uL MPV (7.4-10.4) fL Immature Gran % (Auto) % Neut % (Auto) % Lymph % (Auto) % Fisher % (Auto) % Eos % (Auto) % Baso % (Auto) % Neut # (Auto) (1.4-6.5) K/uL Lymph # (Auto) (1.2-3.4) K/uL Fisher # (Auto) (0.11-0.59) K/uL Eos # (Auto) (0-0.5) K/uL Baso # (Auto) (0-0.2) K/uL Immature Gran # (Auto) (0.00-0.02) K/uL PT (9.0-12.0) Seconds INR (0.9-1.1) Sodium (136-145) mmol/L Potassium (3.5-5.1) mmol/L Chloride (98-107) mmol/L Carbon Dioxide (21-32) mmol/L Anion Gap (3-11) BUN (7-18) mg/dl Creatinine (0.6-1.2) mg/dl Est Cr Clr Drug Dosing ml/min Est GFR ( Amer) Est GFR (Non-Af Amer) BUN/Creatinine Ratio (10-20) Glucose (70-99) mg/dl Calcium (8.5-10.1) mg/dl Total Bilirubin (0.2-1) mg/dl AST (15-37) U/L ALT (12-78) U/L Alkaline Phosphatase (45-117) U/L Troponin I (0-0.045) ng/ml Total Protein (6.4-8.2) gm/dl Albumin (3.4-5.0) gm/dl Globulin (2.5-4.0) gm/dl Albumin/Globulin Ratio (0.9-2) Lipase (73-393) U/L Urine Color Dark Yellow Urine Appearance Clear (Clear) Urine pH 6.0 (4.5-7.5) Ur Specific [place] 1.028 (1.000-1.030) Urine Protein Negative (Negative) Urine Glucose (UA) Negative (Negative) Urine Ketones 4+ H (Negative) Urine Blood Negative (Negative) Urine Nitrite Negative (Negative) Urine Bilirubin 1+ H (Negative) Urine Urobilinogen Negative (Negative) Ur Leukocyte Esterase Negative (Negative) COVID-19 Eval Order Covid19 [facility] SARS-CoV-2, RNA, NAAT NEGATIVE (NEGATIVE) Administered Medications Sodium Chloride (Nss 1000ml) 1,000 mls @ 100 mls/hr IV .Q10H JOSEMANUEL Stop: 09/29/20 21:51 Last Admin: 08/30/20 22:49 Dose: 100 mls/hr Documented by: [id number] Discontinued Medications Sodium Chloride (Nss 1000ml) 500 mls @ 999 mls/hr IV .Q31M ONE Stop: 08/30/20 16:50 Last Infusion: 08/30/20 19:35 Dose: 0 mls/hr Documented by: [id number] Admin: 08/30/20 17:18 Dose: 999 mls/hr Documented by: [id number] Famotidine (Pepcid 20mg Iv Push) 20 mg in 5 mls @ 2.5 mls/min IV NOW STA Stop: 08/30/20 16:21 Last Admin: 08/30/20 17:17 Dose: 2.5 mls/min Documented by: [id number] Pantoprazole Sodium 80 mg/ (Dextrose) 100 mls @ 400 mls/hr IV ONE STA Stop: 08/30/20 18:42 Last Infusion: 08/30/20 19:36 Dose: 0 mls/hr Documented by: [id number] Admin: 08/30/20 19:08 Dose: 400 mls/hr Documented by: [id number] Sodium Chloride (Nss) 500 mls @ 999 mls/hr IV .Q31M ONE Stop: 08/30/20 19:31 Last Admin: 08/30/20 19:36 Dose: 999 mls/hr Documented by: [id number] Ioversol (Optiray 320 125ml) 117 ml IV ONCE ONE Stop: 08/30/20 17:44 Last Admin: 08/30/20 17:45 Dose: 117 ml Documented by: [id number] Ketorolac Tromethamine (Ketorolac Tromethamine 15 Mg/Ml Vial) 10 mg IV NOW ONE Stop: 08/30/20 16:21 Last Admin: 08/30/20 17:17 Dose: 10 mg Documented by: [id number] Ondansetron HCl (Ondansetron Inj 2 Mg/Ml 2 Ml Vial) 4 mg IV NOW STA Stop: 08/30/20 19:03 Last Admin: 08/30/20 19:08 Dose: 4 mg Documented by: [id number] Discharge Plan Visit Data Chief Complaint: Vomiting Stated Complaint: VOMITING,LEG WEAKNESS,BACK/ABDOMINAL PAIN ED Provider: Saqib Amin Discharge Problem: Abdominal pain, epigastric, Nausea & vomiting, Duodenal ulcer Patient Disposition: Admitted As Inpatient Discharge Instructions Interventions: ED Discharge Assessment Last Done: 08/30/20 21:22 Discharge Problem: Nausea & vomiting Qualifiers: Vomiting type: unspecified Vomiting Intractability: non-intractable Qualified Code(s): R11.2 - Nausea with vomiting, unspecified
[2020-08-30 16:59] LABS: Basophils # (auto) 0.02 K/uL (0-0.2); Basophils % (auto) 0.2 %; Hematocrit (blood only) 39.8 % (37-47); Hemoglobin 13.6 g/dL (12.0-16.0); Immature Granulocytes # (auto) 0.01 K/uL (0.00-0.02); Immature Granulocytes % (auto) 0.1 %; Lymphocytes # (auto) 1.61 K/uL (1.2-3.4); Lymphocytes % (auto) 13.6 %; Mean Corpuscular Hemoglobin 32.5 pg (25-34); Mean Corpuscular Hgb Conc 34.2 g/dL (32-36); Mean Corpuscular Volume 95.2 fL (80-100); Mean Platelet Volume 9.1 fL (7.4-10.4); Monocytes # (auto) 0.68 K/uL (0.11-0.59); Monocytes % (auto) 5.7 %; Neutrophils # (auto) 9.55 K/uL (1.4-6.5); Neutrophils % (auto) 80.4 %; Platelet Count 374 K/uL (130-400); RDW Coefficient of Variation 12.4 % (11.5-14.5); RDW Standard Deviation 42.9 fL (36.4-46.3); Red Blood Count 4.18 M/uL (4.2-5.4); White Blood Count 11.87 K/uL (4.8-10.8)
[2020-08-30 17:12] LABS: INR 1.1 (0.9-1.1); Prothrombin Time 10.7 Seconds (9.0-12.0)
[2020-08-30 17:18] LABS: Alanine Aminotransferase 20 U/L (12-78); Albumin Level 3.3 gm/dl (3.4-5.0); Aspartate Aminotransferase 15 U/L (15-37); BUN Creatinine Ratio 20.9 (10-20); Blood Urea Nitrogen 16 mg/dl (7-18); Calcium 10.6 mg/dl (8.5-10.1); Carbon Dioxide 29 mmol/L (21-32); Chloride 99 mmol/L (98-107); Creatinine Clr Calc Pharmacy 43.8 ml/min; Est GFR (African American) 87.1; Est GFR (Non-African American) 75.1; Glucose 160 mg/dl (70-99); Lipase 98 U/L (73-393); Potassium 3.8 mmol/L (3.5-5.1); Sodium 137 mmol/L (136-145)
[2020-08-30 17:23] LABS: Albumin Globulin Ratio 0.8 (0.9-2); Alkaline Phosphatase 43 U/L (45-117); Bilirubin,Total 0.4 mg/dl (0.2-1); Globulin 4.1 gm/dl (2.5-4.0); Total Protein 7.4 gm/dl (6.4-8.2); Troponin I < 0.015 ng/ml (0-0.045)
[2020-08-30] MEDS ORDERED: OPTIRAY 320 125ml IV ONE (17:43)
--- NOTE | 2020-08-30 18:00 | CT Scan Report ---
CT ANGIOGRAPHY OF THE CHEST, PULMONARY EMBOLUS PROTOCOL CLINICAL HISTORY: Epigastric pain. Possible pulmonary embolus. COMPARISON STUDY: Chest CT June 01, 2017. TECHNIQUE: Following IV administration of 117 mL of Optiray-320, helical axial images of the chest we re obtained utilizing the pulmonary embolus protocol. Maximal intensity projections and sagittal and coronal reformats were viewed on an independent 3D workstation. IV contrast was administered withou t complication. Automated exposure control was utilized for the study. A dose lowering technique wa s utilized adhering to the principles of ALARA. FINDINGS: No pulmonary emboli are identified. There is mild dilatation of the central pulmonary jessica camila. No pericardial effusion is noted. No enlarged axillary, mediastinal or hilar lymph nodes are pr esent. There is no thoracic aortic dissection. No pneumothorax or pleural effusion is noted. The cent ral airways are patent. There is no consolidation to suggest pneumonia. A 4 mm nodule along the minor fissure on image 134 is unchanged since abdominal CT of February 09, 2013. This is benign. A 4 mm subp leural left lower lobe nodules also unchanged. There are no suspicious pulmonary nodules. Please note that the abdomen and pelvis will be reported separately. Inflammation adjacent to the second portion of the duodenum is better depicted on that examination. The gallbladder is surgically absent. IMPRESSION: 1. No pulmonary emboli identified. 2. No acute process within the chest. 3. Inflammation centered on the first and second portions of the duodenum, better depicted on the CT of the abdomen and pelvis. Please see that report for further description. ACT 112: Negative or not required by law. Electronically signed by: Leighton Pena M.D. 08/30/2020 5:59 PM
[2020-08-30 18:09] LABS: Appearance Urine Clear (Clear); Blood Urine Negative (Negative); Color Urine Dark Yellow; Glucose Urine UA Negative (Negative); Ketones Urine 4+ (Negative); Leukocyte Esterase Urine Negative (Negative); Nitrite Urine Negative (Negative); Protein Urine Negative (Negative); Specific Gravity Urine 1.028 (1.000-1.030); Urobilinogen Urine Negative (Negative)
--- NOTE | 2020-08-30 18:11 | CT Scan Report ---
CT OF THE ABDOMEN AND PELVIS WITH CONTRAST CLINICAL HISTORY: Epigastric pain. COMPARISON STUDY: CT of the abdomen and pelvis February 09, 2013. Right upper quadrant ultrasound Shad 2020. TECHNIQUE: Following IV administration of 117 mL of Optiray-320, axial images of the abdomen and pelv is were obtained from the lung bases to the proximal femurs. Images were reviewed in the axial, sagit eliza, and coronal planes. IV contrast was administered without complication. Automated exposure contr ol was utilized for the study. A dose lowering technique was utilized adhering to the principles of ALARA. CT DOSE: 543.49 mGy.cm FINDINGS: No pneumatosis, free air or portal venous gas is present. The liver, spleen, adrenal glands , kidneys and pancreas are unremarkable. There is no biliary ductal dilatation status post cholecyste ctomy. There is no pancreatic ductal dilatation. There is no peripancreatic infiltration. Note is mad e of moderate inflammation with stranding and fluid centered on the second portion of the duodenum wi th a 2.3 cm gas and fluid containing outpouching of the second portion of the duodenum shown on axial image 123 of 351. There is apparent narrowing of the duodenum just distal to the duodenal bulb. Ther e is no gastric distention. No extraluminal gas is present. Note is made of sigmoid diverticulosis wi thout evidence for acute diverticulitis. There is no evidence for a bowel obstruction. The appendix i s normal. There is no lymphadenopathy. There is extensive aortoiliac catheters carotid plaque. There is no hydronephrosis. No acute fracture or suspicious lesion is identified within the visualized skel etal structures. Bladder wall thickening is noted. This is accentuated by underdistention. IMPRESSION: 1. Moderate inflammation adjacent to the second portion of the duodenum with duodenal wall thickening and hyperemia. The findings suggest duodenal peptic ulcer disease. No extraluminal gas. 2.3 cm gas a nd fluid containing outpouching of the second portion of the duodenum could reflect a duodenal divert iculum or ulcer. 2. No biliary ductal dilatation status post cholecystectomy. 3. Bladder wall thickening which could be correlated with urinalysis. ACT 112: Negative or not required by law. Electronically signed by: Leighton Pena M.D. 08/30/2020 6:09 PM
[2020-08-30 18:24] LABS: Bilirubin Urine 1+ (Negative)
[2020-08-30] MEDS ORDERED: PANTOprazole 80 MG in DEXTROSE 5% 100 ML IV STA (18:28)
[2020-08-30] MEDS ORDERED: SODIUM CHLORIDE 0.9% 500 ML IV ONE (19:01)
[2020-08-30] MEDS ORDERED: ONDANSETRON INJ 2 MG/ML 2 ML VIAL IV STA (19:02)
[2020-08-30] MEDS ORDERED: ONDANSETRON INJ 2 MG/ML 2 ML VIAL IV PRN (20:41)
[2020-08-30] MEDS ORDERED: traMADol HCL 50 MG TABLET PO PRN (20:41)
--- NOTE | 2020-08-30 20:42 | History & Physical Report ---
Date of Service August 30, 2020 Assessment & Plan (1) Duodenal ulcer: 79 yo F PMHx HTN, DM2 on insulin therapy, HLD, dementia, chronic low back pain admitted for abdominal pain and vomiting secondary to peptic ulcer disease. Peptic ulcer disease: -Several weeks of decreased PO intake secondary to abdominal pain, and now 2 days of vomiting. -CTAP shows findings suggestive of duodenal peptic ulcer disease, without evidence of perforation. -Hgb normal, no evidence of bleeding ulcer. -Start PPI PO BID. -GI consult placed, NPO in AM except meds for possible EGD tomorrow. -Hold aspirin and diclofenac given PUD. DM2: -History of on insulin therapy. -Hold home medications. -Lantus 10u BID with SSI, adjust as needed based on qACHS BSG. Chronic low back pain: -Histoty of, with prescriptions for tramadol, diclofenac tablets, and diclofenac gel as needed. -Hold diclofenac given PUD. -Continue tramadol and Tylenol as needed for pain. HTN: -Continue home ramipril. HLD: -Continue home atorvastatin. Dementia: -Patient lives with her daughter and daughter's family. Can be forgetful at ti mes, but on interview is alert and oriented. -Continue home donepezil. Code Status: FULL CODE FEN: NPO with NSS at 100cc/hr DVT ppx: SCDs Dispo: Med Surg, GI consult in AM (2) Diabetes mellitus type 2, uncontrolled, without complications: (3) Multifactorial dementia: (4) Anxiety: (5) Dyslipidemia: (6) Benign essential hypertension: History of Present Illness Chief Complaint: nausea, vomiting, abdominal pain Primary Care Provider: Daniel Juan, III, PROJECT DEVELOPER 79 yo F PMHx HTN, HLD, DM2 on insulin therapy, chronic low back pain, dementia presented to ER for about 2 weeks of epigastric burning pain, worse with eating, as well as vomiting for 2 days. Denies fevers or chills, hematemesis, blood in stools, diarrhea. She has taken some Pepto for her discomfort with mild relief. Gallbladder US performed earlier this week which showed absent gallbladder, no duct stones. In ER had CTAP which showed evidence of duodenal ulcer. Hospitalist service consulted for admission, with intention for GI consult for AM evaluation. While in ER patient received IV Protonix, IV Pepcid, and NSS 1L bolus. At time of interview patient reports less abdominal pain, denies SOB, chest pain, nausea, dizziness, headaches. Allergies Allergy/AdvReac Type Severity Reaction Status Date / Time latex Allergy Mild RASH Verified 08/30/20 17:11 Codeine Derivatives Allergy Unknown Unknown Uncoded 08/30/20 17:11 Home Medications Medication Instructions Recorded Confirmed Type acetaminophen 500 mg tablet 500 mg PO Q6H PRN tab 02/11/19 08/30/20 History aspirin 81 mg tablet,delayed 81 mg PO DAILY tab 02/11/19 08/30/20 History release cyanocobalamin (vitamin B-12) 1,000 mcg PO DAILY cap 02/11/19 08/30/20 History 1,000 mcg capsule OneTouch Delica Lancets 33 gauge #200 ea NS 01/20/20 08/24/20 Rx alendronate 70 mg tablet 70 mg PO WK #12 tab 01/20/20 08/30/20 Rx pen needle, diabetic 32 gauge x #200 ea 01/20/20 08/24/20 Rx 5/32" OneTouch Verio test strips #200 ea NS 04/13/20 08/24/20 Rx metformin 500 mg tablet,extended 500 mg PO DAILY 90 Days #90 tab 05/19/20 08/30/20 Rx release 24 hr calcium carbonate 600 mg (1,500 1 cap PO BID cap 05/26/20 08/30/20 History mg)-vitamin D3 500 unit capsule psyllium husk 0.4 gram capsule 0.4 g PO DAILY 05/26/20 08/30/20 History blood-glucose sensor #3 ea 07/06/20 Rx blood-glucose transmitter #1 ea 07/06/20 Rx ezetimibe 10 mg tablet 10 mg PO DAILY #90 tab 07/20/20 08/30/20 Rx atorvastatin 40 mg tablet 40 mg PO DAILY #90 tab 08/10/20 08/30/20 Rx diclofenac sodium 1 % topical gel 2 g TOPICAL DAILY #100 g 08/10/20 08/30/20 Rx diclofenac sodium 50 mg 50 mg PO Q12H PRN #90 tab 08/10/20 08/30/20 Rx tablet,delayed release donepezil 5 mg tablet 5 mg PO DAILY #90 tab 08/10/20 08/30/20 Rx ramipril 10 mg capsule 10 mg PO BID #90 cap 08/10/20 08/30/20 Rx tamoxifen 20 mg tablet 20 mg PO DAILY #90 tab 08/10/20 08/30/20 Rx Novolog Mix 70-30 FlexPen U-100 See Rx Instructions SQ .COMPLEX 08/24/20 08/30/20 Rx Insulin 100 unit/mL subcutaneous #15 ml NS pen tramadol 50 mg tablet 50 mg PO .COMPLEX PRN #20 tab 08/24/20 08/30/20 Rx ondansetron 8 mg disintegrating 8 mg PO Q8H PRN #20 tab 08/29/20 08/30/20 Rx tablet sulfamethoxazole 800 1 tab PO Q12H 10 Days #20 tab 08/29/20 08/30/20 Rx mg-trimethoprim 160 mg tablet amoxicillin 2,000 mg PO ONCE PRN 08/30/20 08/30/20 History Past Med/Surg History Medical History Anxiety Diverticulosis History of infiltrating ductal carcinoma of breast Surgical History H/O foot surgery H/O neck surgery H/O: hysterectomy History of tonsillectomy and adenoidectomy Hx of cholecystectomy S/P lumpectomy, right breast Family History Father Esophageal cancer Family/Other Diabetes Grandfather (Maternal) Diabetes Brother Diabetes Cancer Grandmother (Paternal) Coronary heart disease Grandfather (Paternal) Myocardial infarction Unknown Breast cancer Daughter Breast cancer Mother No known health problems Dementia Denies family history of Ovarian cancer Prostate cancer Colorectal cancer Social History Smoking Status: Current every day smoker Tobacco Type: Cigarettes Age Started Using Tobacco: 21; packs per day: 0.5; Years Smoked: 60; Cigarettes Per Day: 5 cigarettes a day; Second Hand Exposure: Yes; Hx Alcohol Use: Yes Alcohol type: wine Alcohol Intake Frequency: 2-3 x/Week Alcohol Intake Frequency Comment: one drink Hx Substance Use: No Preferred Language: [place]al[place] Communication Ability: Effective Visual Impairment: No Limitations Hearing Ability: Normal marital status: Current Living Situation: Family Current Living Situation Comment: lives with daughter current occupational status: retired 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 Feels Safe at Home: Yes Childhood Exposure to Second-Hand Smoke: Yes Dental Care, Regularly: Yes Physical Activity Frequency: Does not Exercise Seatbelt Use: always Sunscreen Use: No Review of Systems Review of Systems: All systems reviewed & are unremarkable except as noted in HPI & below Constitutional: no fever, no chills and no malaise Respiratory: no cough and no dyspnea Cardiovascular: no chest pain, no palpitations and no edema Gastrointestinal: + abdominal pain (Epigastric); no constipation and no diarrhea/loose stools Genitourinary: no dysuria and no hematuria Physical Exam Constitutional: WD/WN, vitals as above Eyes: PERRL, conjunctivae normal, anicteric sclerae ENMT: external ear and nose normal, oropharynx normal Neck: normal visual inspection Respiratory: normal respiratory effort, lungs clear to auscultation Cardiovascular: RRR, no murmur, no edema Gastrointestinal (Abdomen): Inspection/Auscultation: normal bowel sounds Percussion/Palpation: + abdomen tender and abdomen soft; no guarding Musculoskeletal: no cyanosis or clubbing, extremities motor strength 5/5 Skin: no rashes, warm and dry Neurologic: Normal speech. Moves all extremities equally Psychiatric: A+Ox3, euthymic affect (Can be forgetful about past events) Results & Data Results & Data ([facility]) Vital Signs (Past 12 Hours) Vital Signs Temp Pulse Pulse Resp BP BP Pulse Ox 08/30/20 19:30 88 19 08/30/20 19:00 97 H 23 08/30/20 18:30 91 H 17 84 L 08/30/20 18:01 92 H 16 157/63 H 94 08/30/20 18:00 94 H 17 94 08/30/20 17:57 95 08/30/20 17:51 107 H 24 08/30/20 17:01 93 H 16 150/79 H 08/30/20 17:00 99 H 90 18 150/79 H 97 08/30/20 16:49 95 H 13 92 08/30/20 16:48 93 H 16 163/72 H 90 08/30/20 15:59 101 H 18 137/83 97 08/30/20 14:43 35.8 C L 79 18 105/68 97 Laboratory Results Lab Results 08/30/20 08/30/20 08/30/20 Range/Units 16:40 16:40 16:40 WBC 11.87 H (4.8-10.8) K/uL RBC 4.18 L (4.2-5.4) M/uL Hgb 13.6 (12.0-16.0) g/dL Hct 39.8 (37-47) % MCV 95.2 (80-100) fL MCH 32.5 (25-34) pg MCHC 34.2 (32-36) g/dL RDW Std Deviation 42.9 (36.4-46.3) fL RDW Coeff of Farhan 12.4 (11.5-14.5) % Plt Count 374 (130-400) K/uL MPV 9.1 (7.4-10.4) fL Immature Gran % (Auto) 0.1 % Neut % (Auto) 80.4 % Lymph % (Auto) 13.6 % [place] % (Auto) 5.7 % Eos % (Auto) 0.0 % Baso % (Auto) 0.2 % Neut # (Auto) 9.55 H (1.4-6.5) K/uL Lymph # (Auto) 1.61 (1.2-3.4) K/uL [place] # (Auto) 0.68 H (0.11-0.59) K/uL Eos # (Auto) 0.00 (0-0.5) K/uL Baso # (Auto) 0.02 (0-0.2) K/uL Immature Gran # (Auto) 0.01 (0.00-0.02) K/uL PT 10.7 (9.0-12.0) Seconds INR 1.1 (0.9-1.1) Sodium 137 (136-145) mmol/L Potassium 3.8 (3.5-5.1) mmol/L Chloride 99 (98-107) mmol/L Carbon Dioxide 29 (21-32) mmol/L Anion Gap 9.0 (3-11) BUN 16 (7-18) mg/dl Creatinine 0.76 (0.6-1.2) mg/dl Est Cr Clr Drug Dosing 43.8 ml/min Est GFR ( Amer) 87.1 Est GFR (Non-Af Amer) 75.1 BUN/Creatinine Ratio 20.9 H (10-20) Glucose 160 H (70-99) mg/dl Calcium 10.6 H (8.5-10.1) mg/dl Total Bilirubin 0.4 (0.2-1) mg/dl AST 15 (15-37) U/L ALT 20 (12-78) U/L Alkaline Phosphatase 43 L (45-117) U/L Troponin I < 0.015 (0-0.045) ng/ml Total Protein 7.4 (6.4-8.2) gm/dl Albumin 3.3 L (3.4-5.0) gm/dl Globulin 4.1 H (2.5-4.0) gm/dl Albumin/Globulin Ratio 0.8 L (0.9-2) Lipase 98 (73-393) U/L Urine Color Urine Appearance (Clear) Urine pH (4.5-7.5) Ur Specific [place] (1.000-1.030) Urine Protein (Negative) Urine Glucose (UA) (Negative) Urine Ketones (Negative) Urine Blood (Negative) Urine Nitrite (Negative) Urine Bilirubin (Negative) Urine Urobilinogen (Negative) Ur Leukocyte Esterase (Negative) COVID-19 Eval Order SARS-CoV-2, RNA, NAAT (NEGATIVE) 08/30/20 08/30/20 08/30/20 Range/Units 17:50 19:21 19:21 WBC (4.8-10.8) K/uL RBC (4.2-5.4) M/uL Hgb (12.0-16.0) g/dL Hct (37-47) % MCV (80-100) fL MCH (25-34) pg MCHC (32-36) g/dL RDW Std Deviation (36.4-46.3) fL RDW Coeff of Farhan (11.5-14.5) % Plt Count (130-400) K/uL MPV (7.4-10.4) fL Immature Gran % (Auto) % Neut % (Auto) % Lymph % (Auto) % [place] % (Auto) % Eos % (Auto) % Baso % (Auto) % Neut # (Auto) (1.4-6.5) K/uL Lymph # (Auto) (1.2-3.4) K/uL [place] # (Auto) (0.11-0.59) K/uL Eos # (Auto) (0-0.5) K/uL Baso # (Auto) (0-0.2) K/uL Immature Gran # (Auto) (0.00-0.02) K/uL PT (9.0-12.0) Seconds INR (0.9-1.1) Sodium (136-145) mmol/L Potassium (3.5-5.1) mmol/L Chloride (98-107) mmol/L Carbon Dioxide (21-32) mmol/L Anion Gap (3-11) BUN (7-18) mg/dl Creatinine (0.6-1.2) mg/dl Est Cr Clr Drug Dosing ml/min Est GFR ( Amer) Est GFR (Non-Af Amer) BUN/Creatinine Ratio (10-20) Glucose (70-99) mg/dl Calcium (8.5-10.1) mg/dl Total Bilirubin (0.2-1) mg/dl AST (15-37) U/L ALT (12-78) U/L Alkaline Phosphatase (45-117) U/L Troponin I (0-0.045) ng/ml Total Protein (6.4-8.2) gm/dl Albumin (3.4-5.0) gm/dl Globulin (2.5-4.0) gm/dl Albumin/Globulin Ratio (0.9-2) Lipase (73-393) U/L Urine Color Dark Yellow Urine Appearance Clear (Clear) Urine pH 6.0 (4.5-7.5) Ur Specific [place] 1.028 (1.000-1.030) Urine Protein Negative (Negative) Urine Glucose (UA) Negative (Negative) Urine Ketones 4+ H (Negative) Urine Blood Negative (Negative) Urine Nitrite Negative (Negative) Urine Bilirubin 1+ H (Negative) Urine Urobilinogen Negative (Negative) Ur Leukocyte Esterase Negative (Negative) COVID-19 Eval Order Covid19 IDNow [facility] SARS-CoV-2, RNA, NAAT NEGATIVE (NEGATIVE) Diagnostic Findings CT OF THE ABDOMEN AND PELVIS WITH CONTRAST CLINICAL HISTORY: Epigastric pain. COMPARISON STUDY: CT of the abdomen and pelvis February 09, 2013. Right upper quadrant ultrasound August 24, 2020. TECHNIQUE: Following IV administration of 117 mL of Optiray-320, axial images of the abdomen and pelvis were obtained from the lung bases to the proximal femurs. Images were reviewed in the axial, sagittal, and coronal planes. IV contrast was administered without complication. Automated exposure control was utilized for the study. A dose lowering technique was utilized adhering to the principles of ALARA. CT DOSE: 543.49 mGy.cm FINDINGS: No pneumatosis, free air or portal venous gas is present. The liver, spleen, adrenal glands, kidneys and pancreas are unremarkable. There is no biliary ductal dilatation status post cholecystectomy. There is no pancreatic ductal dilatation. There is no peripancreatic infiltration. Note is made of moderate inflammation with stranding and fluid centered on the second portion of the duodenum with a 2.3 cm gas and fluid containing outpouching of the second portion of the duodenum shown on axial image 123 of 351. There is apparent narrowing of the duodenum just distal to the duodenal bulb. There is no gastric distention. No extraluminal gas is present. Note is made of sigmoid diverticu losis without evidence for acute diverticulitis. There is no evidence for a bowel obstruction. The appendix is normal. There is no lymphadenopathy. There is extensive aortoiliac catheters carotid plaque. There is no hydronephrosis. No acute fracture or suspicious lesion is identified within the visualized skeletal structures. Bladder wall thickening is noted. This is accentuated by underdistention. IMPRESSION: 1. Moderate inflammation adjacent to the second portion of the duodenum with duodenal wall thickening and hyperemia. The findings suggest duodenal peptic ulcer disease. No extraluminal gas. 2.3 cm gas and fluid containing outpouching of the second portion of the duodenum could reflect a duodenal diverticulum or ulcer. 2. No biliary ductal dilatation status post cholecystectomy. 3. Bladder wall thickening which could be correlated with urinalysis. ACT 112: Negative or not required by law. Electronically signed by: Leighton Pena M.D. 08/30/2020 6:09 PM Dictated: 08/30/201758Transcribed: 08/30/201758 CT ANGIOGRAPHY OF THE CHEST, PULMONARY EMBOLUS PROTOCOL CLINICAL HISTORY: Epigastric pain. Possible pulmonary embolus. COMPARISON STUDY: Chest CT June 01, 2017. TECHNIQUE: Following IV administration of 117 mL of Optiray-320, helical axial images of the chest were obtained utilizing the pulmonary embolus protocol. Maximal intensity projections and sagittal and coronal reformats were viewed on an independent 3D workstation. IV contrast was administered without complication. Automated exposure control was utilized for the study. A dose lowering technique was utilized adhering to the principles of ALARA. FINDINGS: No pulmonary emboli are identified. There is mild dilatation of the central pulmonary arteries. No pericardial effusion is noted. No enlarged axillary, mediastinal or hilar lymph nodes are present. There is no thoracic aortic dissection. No pneumothorax or pleural effusion is noted. The central airways are patent. There is no consolidation to suggest pneumonia. A 4 mm nodul e along the minor fissure on image 134 is unchanged since abdominal CT of February 09, 2013. This is benign. A 4 mm subpleural left lower lobe nodules also unchanged. There are no suspicious pulmonary nodules. Please note that the abdomen and pelvis will be reported separately. Inflammation adjacent to the second portion of the duodenum is better depicted on that examination. The gallbladder is surgically absent. IMPRESSION: 1. No pulmonary emboli identified. 2. No acute process within the chest. 3. Inflammation centered on the first and second portions of the duodenum, better depicted on the CT of the abdomen and pelvis. Please see that report for further description. ACT 112: Negative or not required by law. Electronically signed by: Leighton Pena M.D. 08/30/2020 5:59 PM Dictated: 08/30/[id number]: 08/30/201750 Code Status & VTE Plan VTE Prophylaxis Plan VTE Prophylaxis will be ordered: Yes Supervising Physician Co-Signing Physician Notes Patient seen and examined, chart reviewed, case discussed with Dr. Lim and I agree with her assessment and plan as documented above. Briefly, patient is a 79yo female presenting with 1.5 - 2 weeks of mid-abdominal pain, bandlike in nature, worse with meals. Developed nausea with "projectile" vomiting yesterday. Denies melena/hematochezia, hematemesis or coffee ground emesis. Denies fever/chills/CP/SOB. On exam she is afebrile, HD stable, somewhat foregetful Skin - no rash HEENT - NC/AT, PERRL, EOMI, Neck supple, MMM Heart - +S1/S2, regular, no m/r/g Lungs - CTA, no rales/rhonchi/wheezes Abd - +BS, soft, non-distended, tender in epigastrium with voluntary guarding Ext - warm, well perfused, no clubbing/cyanosis or edema Labs and images reviewed. Significant for neutrophil predominant leukocytosis with WBC=11.87, LFTs and lipase largely unremarkable. UA with ketones Assessment/Plan: Possible duodenal ulcer, no history of prior. Imaging suggests possible duodenal diverticulum with outpouching, gas and fluid noted. No perforation noted on imaging. History/physical or laboratory findings do not suggest bleeding - normal H/H, MCV and BUN -Protonix BID -Check H.pylori -GI consultation appreciated -Remainder of plan as above Resident Activity Tracking Resident Involvement: Resident Care Provided Care Provided: Adult Hospital Medicine
[2020-08-30] MEDS ORDERED: CARBOHYDRATES FOR HYPOGLYCEMIA PO PRN (21:52)
[2020-08-30] MEDS ORDERED: GLUCAGON FOR INJ 1 MG VIAL SQ PRN (21:52)
[2020-08-30] MEDS ORDERED: DEXTROSE 50% 50 ML SYRINGE IV PRN (21:52)
[2020-08-30] MEDS ORDERED: GLUCOSE 10 TABS/TUBE PO PRN (21:52)
[2020-08-30] MEDS ORDERED: GLUCOSE 40% GEL 15 GM TUBE PO PRN (21:52)
[2020-08-30] MEDS ORDERED: POLYETHYLENE (MIRALAX) 17 GM PACK PO PRN (21:52)
[2020-08-30] MEDS ORDERED: Nursing to Pharmacy Communication SCH (22:00)
[2020-08-30] MEDS ORDERED: ACETAMINOPHEN 500 MG TAB PO PRN (22:03)
[2020-08-30] MEDS ORDERED: INSULIN ASPART 100 UNITS/ML 3 ML PEN SC SCH (22:15)
--- NOTE | 2020-08-30 22:33 | Billing Data ---
Date of Service August 30, 2020 Coding Level of Care Code 39798 Initial Inpt Care Lvl 3
[2020-08-30] MEDS: SODIUM CHLORIDE 0.9% 1000ML 1,000 ML IV SCH (22:49)
[2020-08-30] MEDS: ENALAPRIL MALEATE 10 MG TAB PO SCH (23:31)
[2020-08-30] MEDS: PANTOprazole 40 MG TAB PO SCH (23:31)
[2020-08-30] MEDS: INSULIN GLARGINE SOLOSTAR 100 UNITS/ML 3 ML PEN SC SCH (23:43)
[2020-08-30] MEDS: INSULIN ASPART 100 UNITS/ML 3 ML PEN SC SCH (23:45)
[2020-08-31] MEDS: INSULIN ASPART 100 UNITS/ML 3 ML PEN SC SCH ×2 (06:19→13:06)
--- NOTE | 2020-08-31 08:26 | Hospitalist Progress Note ---
Date of Service August 31, 2020 Assessment & Plan (1) Duodenal ulcer: Yudith Perez is a 79 yo F with a PMHx HTN, DM2 on insulin therapy, HLD, dementia, chronic low back pain admitted for abdominal pain and vomiting secondary to peptic ulcer disease. Peptic ulcer disease - Presented to ER with 2 weeks of burning epigastric pain worse with eating and 2x days of vomiting - WBC 11.87, mild, afebrile, suspect demargination - Cr <1, BUN/Cr 20.9 suspect mild volume depletion - trop negative, EKG nsr. (Junctional ST in v4 without territorial changes) - VSS - No fever, melena, BRBPR, diarrhea - CT-A/P: ?PUD w/o free air/perforation -Hgb normal, no evidence of bleeding ulcer. - Protonix 40mg PO BID - Famotidine 20mg BID x3-4 days -GI consulted on admission, NPO in AM except meds for possible EGD tomorrow. -Hold aspirin and diclofenac given PUD. DM2: -History of on insulin therapy. -Hold home medications. -Lantus 10u BID with SSI Chronic low back pain: -Histoty of, with prescriptions for tramadol, diclofenac tablets, and diclofenac gel as needed. -Hold diclofenac given PUD. -Continue tramadol and Tylenol as needed for pain. HTN: -Continue home ramipril. HLD: -Continue home atorvastatin. Dementia: -Patient lives with her daughter and daughter's family. alert and oriented on admission exam -Continue home donepezil. Code Status: FULL CODE FEN: NPO with NSS at 100cc/hr DVT ppx: SCDs Dispo: Med Surg (2) Diabetes mellitus type 2, uncontrolled, without complications: (3) Multifactorial dementia: (4) Anxiety: (5) Dyslipidemia: (6) Benign essential hypertension: Admission and Anticipated Discharge Date Admission Date: August 30, 2020 Results & Data Results & Data ([facility]) Vital Signs (Past 12 Hours) Vital Signs Temp Pulse Resp BP Pulse Ox 08/31/20 07:39 36.8 C 84 16 101/65 95 08/30/20 23:13 36.8 C 91 H 18 135/69 97 08/30/20 21:40 36.7 C 84 18 144/67 H 92 08/30/20 21:24 88 16 135/77 98
[2020-08-31] MEDS: SODIUM CHLORIDE 0.9% 1000ML 1,000 ML IV SCH (08:43)
[2020-08-31] MEDS ORDERED: ATORVASTATIN 40 MG TAB PO SCH (09:00)
[2020-08-31] MEDS ORDERED: CYANOCOBALAMIN 500 MCG TABLET (VITAMIN B-12) PO SCH (09:00)
[2020-08-31] MEDS ORDERED: EZETIMIBE 10 MG TABLET PO SCH (09:00)
[2020-08-31] MEDS ORDERED: TAMOXIFEN CITRATE 10 MG TABLET PO SCH (09:00)
[2020-08-31] MEDS ORDERED: DONEPEZIL HCL 5 MG TAB PO SCH (09:00)
--- NOTE | 2020-08-31 09:10 | Gastrointestinal Consultation ---
Date of Consultation August 31, 2020 Assessment & Plan (1) Abdominal pain, epigastric: (2) Nausea & vomiting: (3) Abnormal CT of the abdomen: Concern for PUD Ddx: H pylori infection vs NSAIDs (denies use) vs sprue vs malignancy vs other. 1. Reinforced strict NPO with the patient. 2. EGD with Dr. Vera today for further evaluation. 3. Continue Pantoprazole 40 mg IV BID. 4. Additional recommendations pending results of testing. Thank you for allowing us to participate in the care of this pleasant patient. If you have any questions or concerns, please do not hesitate to contact us. Supervising Physician Co-Signing Physician Notes I personally evaluated the patient and agree with the findings as documented by IAIN Bentley Exam: abd: soft, nt, nd Proceed with EGD. History of Present Illness Reason for Consultation: Abnormal CT imaging Requesting Physician: Dr. Barajas Attending Physician: Dayne Pitts DO History of Present Illness Patient is a 79 y.o female with a history of DM, anxiety dyslipidemia, and HTN admitted with several weeks of epigastric pain. She states the pain has been associated with nausea and vomiting. The pain is worse after eating. She has l ost approximately 10 pounds due to symptoms. Pain is worse after eating. No alleviating factors. She denies any routine ASA, ibuprofen or anticoagulant use. Family history is positive for father with PUD and esophageal cancer. No family history of Celiac disease, IBD or colorectal cancer. Last colonoscopy was >10 years ago and was performed outside of this area. She has never undergone an upper endoscopy in the past. On arrival, she was noted to be hemodynamically stable with H&H of 13.6/39.8. CT imaging suggestive of duodenal ulceration with associated inflammatory change and possible diverticulum. Liver panel and lipase were normal. She has been made NPO although she states she did have sips of water at 0900. H Pylori stool antigen has been ordered and she was initiated on Protonix 40 mg IV BID. Allergies Allergy/AdvReac Type Severity Reaction Status Date / Time latex Allergy Mild RASH Verified 08/30/20 17:11 Codeine Derivatives Allergy Unknown Unknown Uncoded 08/30/20 17:11 Home Medications Medication Instructions Recorded Confirmed Type acetaminophen 500 mg tablet 500 mg PO Q6H PRN tab 02/11/19 08/30/20 History aspirin 81 mg tablet,delayed 81 mg PO DAILY tab 02/11/19 08/30/20 History release cyanocobalamin (vitamin B-12) 1,000 mcg PO DAILY cap 02/11/19 08/30/20 History 1,000 mcg capsule OneTouch Delica Lancets 33 gauge #200 ea NS 01/20/20 08/24/20 Rx alendronate 70 mg tablet 70 mg PO WK #12 tab 01/20/20 08/30/20 Rx pen needle, diabetic 32 gauge x #200 ea 01/20/20 08/24/20 Rx 5/32" OneTouch Verio test strips #200 ea NS 04/13/20 08/24/20 Rx metformin 500 mg tablet,extended 500 mg PO DAILY 90 Days #90 tab 05/19/20 08/30/20 Rx release 24 hr calcium carbonate 600 mg (1,500 1 cap PO BID cap 05/26/20 08/30/20 History mg)-vitamin D3 500 unit capsule psyllium husk 0.4 gram capsule 0.4 g PO DAILY 05/26/20 08/30/20 History blood-glucose sensor #3 ea 07/06/20 Rx blood-glucose transmitter #1 ea 07/06/20 Rx ezetimibe 10 mg tablet 10 mg PO DAILY #90 tab 07/20/20 08/30/20 Rx atorvastatin 40 mg tablet 40 mg PO DAILY #90 tab 08/10/20 08/30/20 Rx diclofenac sodium 1 % topical gel 2 g TOPICAL DAILY #100 g 08/10/20 08/30/20 Rx diclofenac sodium 50 mg 50 mg PO Q12H PRN #90 tab 08/10/20 08/30/20 Rx tablet,delayed release donepezil 5 mg tablet 5 mg PO DAILY #90 tab 08/10/20 08/30/20 Rx ramipril 10 mg capsule 10 mg PO BID #90 cap 08/10/20 08/30/20 Rx tamoxifen 20 mg tablet 20 mg PO DAILY #90 tab 08/10/20 08/30/20 Rx Novolog Mix 70-30 FlexPen U-100 See Rx Instructions SQ .COMPLEX 08/24/20 08/30/20 Rx Insulin 100 unit/mL subcutaneous #15 ml NS pen tramadol 50 mg tablet 50 mg PO .COMPLEX PRN #20 tab 08/24/20 08/30/20 Rx ondansetron 8 mg disintegrating 8 mg PO Q8H PRN #20 tab 08/29/20 08/30/20 Rx tablet sulfamethoxazole 800 1 tab PO Q12H 10 Days #20 tab 08/29/20 08/30/20 Rx mg-trimethoprim 160 mg tablet amoxicillin 2,000 mg PO ONCE PRN 08/30/20 08/30/20 History Patient History Medical History Anxiety Diverticulosis History of infiltrating ductal carcinoma of breast Surgical History H/O foot surgery H/O neck surgery H/O: hysterectomy History of tonsillectomy and adenoidectomy Hx of cholecystectomy S/P lumpectomy, right breast Family History Father Esophageal cancer Family/Other Diabetes Grandfather (Maternal) Diabetes Brother Diabetes Cancer Grandmother (Paternal) Coronary heart disease Grandfather (Paternal) Myocardial infarction Unknown Breast cancer Daughter Breast cancer Mother No known health problems Dementia Denies family history of Ovarian cancer Prostate cancer Colorectal cancer Social History Smoking Status: Light tobacco smoker Tobacco Type: Cigarettes Age Started Using Tobacco: 21; packs per day: 0.5; Years Smoked: 60; Cigarettes Per Day: 5 cigarettes a day; Second Hand Exposure: No; Do You Dip or Chew Tobacco: No; Tobacco Cessation Education Requested by Patient: No (refused) Hx Alcohol Use: Yes Alcohol type: wine Alcohol Intake Frequency: 2-3 x/Week Al cohol Intake Frequency Comment: one drink Hx Substance Use: No Preferred Language: Sudanese Communication Ability: Effective Visual Impairment: No Limitations Hearing Ability: Normal Real Estate Rep Required: No Beliefs That Will Affect Care: None marital status: Current Living Situation: Family Current Living Situation Comment: daughter current occupational status: retired current occupation: retired OPERATIONS TECHNICIAN in maternity and telemetry Other Information That Helps Us Care for You: No Feels Safe at Home: Yes Safety Concerns: Feels Safe At This Time Childhood Exposure to Second-Hand Smoke: Yes Dental Care, Regularly: Yes Physical Activity Frequency: Does not Exercise Seatbelt Use: always Sunscreen Use: No Assistive Devices: Walker Review of Systems Review of Systems: All systems reviewed & are unremarkable except as noted in HPI & below Physical Exam Constitutional: WD/WN, vitals as above Eyes: EOM intact bilaterally Neck: normal appearance Respiratory: normal respiratory effort, lungs clear to auscultation Cardiovascular: Rate/Rhythm: regular rate and regular rhythm Heart Sounds: no gallop and no murmur Gastrointestinal (Abdomen): Inspection/Auscultation: normal bowel sounds; abdomen not distended Percussion/Palpation: + abdomen tender (epigastric region) and abdomen soft Musculoskeletal: Extremities: no cyanosis no lower extremity edema Skin: no rashes, warm and dry Neurologic: moves all extremities Psychiatric: A+Ox3, euthymic affect Results & Data ([facility]) Vital Signs (Past 12 Hours) Vital Signs Temp Pulse Resp BP Pulse Ox 08/31/20 07:39 36.8 C 84 16 101/65 95 08/30/20 23:13 36.8 C 91 H 18 135/69 97 08/30/20 21:40 36.7 C 84 18 144/67 H 92 08/30/20 21:24 88 16 135/77 98 Laboratory Results Abnormal lab results 08/30/20 08/30/20 08/30/20 Range/Units 16:40 16:40 17:50 WBC 11.87 H (4.8-10.8) K/uL RBC 4.18 L (4.2-5.4) M/uL Neut # (Auto) 9.55 H (1.4-6.5) K/uL [place] # (Auto) 0.68 H (0.11-0.59) K/uL BUN/Creatinine Ratio 20.9 H (10-20) Glucose 160 H (70-99) mg/dl Calcium 10.6 H (8.5-10.1) mg/dl Alkaline Phosphatase 43 L (45-117) U/L Albumin 3.3 L (3.4-5.0) gm/dl Globulin 4.1 H (2.5-4.0) gm/dl Albumin/Globulin Ratio 0.8 L (0.9-2) Urine Ketones 4+ H (Negative) Urine Bilirubin 1+ H (Negative) PG Care Time/CCT Total # of Minutes Spent Total Time Spent with Patient: Total time spent is greater than 50% in coordination of care (as documented) at patient's floor/unit and/or counseling patient: Coding Level of Care Code 98543 Initial Inpt Care Lvl 3 Diagnoses Abdominal pain, epigastric R10.13 Nausea & vomiting R11.2 Vomiting Intractability: non-intractable Vomiting type: unspecified Abnormal CT of the abdomen R93.5 (1) Nausea & vomiting Vomiting Intractability: non-intractable Vomiting type: unspecified Qualified Code(s): R11.2 - Nausea with vomiting, unspecified
[2020-08-31] MEDS: INSULIN GLARGINE SOLOSTAR 100 UNITS/ML 3 ML PEN SC SCH (09:34)
--- NOTE | 2020-08-31 09:48 | Anesthesiology Consultation ---
Date of Service August 31, 2020 Assessment & Plan (1) Encounter for pre-operative examination: Chart Review Chart Review: Acceptable Risk for Surgery History Surgery Operation Date: 08/31/20 16:45 Proposed Procedures p Esophagogastroduodenoscopy Dr. Jody Vera MD Height/Weight Height: 5 ft Weight: 55.1 kg Allergies Allergy/AdvReac Type Severity Reaction Status Date / Time latex Allergy Mild RASH Verified 08/30/20 17:11 Codeine Derivatives Allergy Unknown Unknown Uncoded 08/30/20 17:11 Medications Home Medications Medication Instructions Recorded Confirmed Last Taken acetaminophen 500 mg tablet 500 mg PO Q6H PRN tab 02/11/19 08/30/20 Unknown aspirin 81 mg tablet,delayed 81 mg PO DAILY tab 02/11/19 08/30/20 08/30/20 release cyanocobalamin (vitamin B-12) 1,000 mcg PO DAILY cap 02/11/19 08/30/20 08/30/20 1,000 mcg capsule OneTouch Delica Lancets 33 gauge #200 ea NS 01/20/20 08/24/20 Unknown alendronate 70 mg tablet 70 mg PO WK #12 tab 01/20/20 08/30/20 Unknown pen needle, diabetic 32 gauge x #200 ea 01/20/20 08/24/20 Unknown 5/32" OneTouch Verio test strips #200 ea NS 04/13/20 08/24/20 Unknown metformin 500 mg tablet,extended 500 mg PO DAILY 90 Days #90 tab 05/19/20 08/30/20 08/30/20 release 24 hr calcium carbonate 600 mg (1,500 1 cap PO BID cap 05/26/20 08/30/20 08/30/20 08:00 mg)-vitamin D3 500 unit capsule psyllium husk 0.4 gram capsule 0.4 g PO DAILY 05/26/20 08/30/20 08/30/20 blood-glucose sensor #3 ea 07/06/20 Unknown blood-glucose transmitter #1 ea 07/06/20 Unknown ezetimibe 10 mg tablet 10 mg PO DAILY #90 tab 07/20/20 08/30/20 08/30/20 atorvastatin 40 mg tablet 40 mg PO DAILY #90 tab 08/10/20 08/30/20 08/30/20 diclofenac sodium 1 % topical gel 2 g TOPICAL DAILY #100 g 02/24/21 03/16/21 Unknown diclofenac sodium 50 mg 50 mg PO Q12H PRN #90 tab 08/10/20 08/30/20 Unknown tablet,delayed release donepezil 5 mg tablet 5 mg PO DAILY #90 tab 08/10/20 08/30/20 08/30/20 ramipril 10 mg capsule 10 mg PO BID #90 cap 08/10/20 08/30/20 08/30/20 08:00 tamoxifen 20 mg tablet 20 mg PO DAILY #90 tab 08/10/20 08/30/20 08/30/20 Novolog Mix 70-30 FlexPen U-100 See Rx Instructions SQ .COMPLEX 08/24/20 08/30/20 08/30/20 08:00 Insulin 100 unit/mL subcutaneous #15 ml NS pen tramadol 50 mg tablet 50 mg PO .COMPLEX PRN #20 tab 08/24/20 08/30/20 Unknown ondansetron 8 mg disintegrating 8 mg PO Q8H PRN #20 tab 08/29/20 08/30/20 Unknown tablet sulfamethoxazole 800 1 tab PO Q12H 10 Days #20 tab 08/29/20 08/30/20 08/30/20 08:00 mg-trimethoprim 160 mg tablet amoxicillin 2,000 mg PO ONCE PRN 08/30/20 08/30/20 Unknown Active Medications Generic Name Dose Route Start Last Admin Trade Name Freq PRN Reason Stop Dose Admin Enalapril Maleate 40 mg 08/30/20 22:15 08/30/20 23:31 Enalapril Maleate 10 Mg Tab PO 09/29/20 22:14 40 mg BID JOSEMANUEL Administration Sodium Chloride 1,000 mls @ 100 mls/hr 08/30/20 21:52 08/31/20 08:43 Nss 1000ml IV 09/29/20 21:51 100 mls/hr .Q10H JOSEMANUEL Administration Insulin Aspart 0 units 08/31/20 00:00 08/31/20 06:19 Insulin Aspart 100 Units/Ml 3 Ml Pen SC 09/29/20 22:14 Not Given Q6 JOSEMANUEL Insulin Glargine 10 units 08/30/20 22:15 08/31/20 09:34 Insulin Glargine Solostar 100 Units/Ml 3 Ml Pen SC 09/29/20 22:14 Not Given BID JOSEMANUEL Pantoprazole Sodium 40 mg 08/30/20 22:15 08/30/20 23:31 Pantoprazole 40 Mg Tab PO 09/29/20 22:14 40 mg BID JOSEMANUEL Administration Past Medical History Medical History Anxiety Diverticulosis History of infiltrating ductal carcinoma of breast Past Family History Family History Father Esophageal cancer Family/Other Diabetes Grandfather (Maternal) Diabetes Brother Diabetes Cancer Grandmother (Paternal) Coronary heart disease Grandfather (Paternal) Myocardial infarction Unknown Breast cancer Daughter Breast cancer Mother No known health problems Dementia Denies family history of Ovarian cancer Prostate cancer Colorectal cancer Past Surgical History Surgical History H/O foot surgery H/O neck surgery H/O: hysterectomy History of tonsillectomy and adenoidectomy Hx of cholecystectomy S/P lumpectomy, right breast Social History Smoking Status: Light tobacco smoker tobacco type: cigarettes Smoking cigarettes per day: 5 cigarettes a day Do You Dip or Chew Tobacco: No Hx Alcohol Use: Yes Alcohol type: wine alcohol intake frequency: a few times a week Hx Substance Use: No Physical Exam Vital Signs Last Vital Signs Temp 36.8 C 08/31/20 07:39 Pulse 84 08/31/20 07:39 Resp 16 08/31/20 07:39 BP 101/65 08/31/20 07:39 Pulse Ox 95 08/31/20 07:39 Testing Laboratory Results 08/30/20 16:40 08/30/20 16:40 PT 10.7 Seconds (9.0-12.0) 08/30/20 16:40 INR 1.1 (0.9-1.1) 08/30/20 16:40 Urine Color Dark Yellow 08/30/20 17:50 Urine Appearance Clear (Clear) 08/30/20 17:50 Urine pH 6.0 (4.5-7.5) 08/30/20 17:50 Ur Specific [place] 1.028 (1.000-1.030) 08/30/20 17:50 Urine Protein Negative (Negative) 08/30/20 17:50 Urine Glucose (UA) Negative (Negative) 08/30/20 17:50 Urine Ketones 4+ (Negative) H 08/30/20 17:50 Urine Nitrite Negative (Negative) 08/30/20 17:50 Ur Leukocyte Esterase Negative (Negative) 08/30/20 17:50 08/31/20 08/30/20 06:04 23:36 POC Glucose 86 93
[2020-08-31] MEDS ORDERED: PROPOFOL IV EMULSION 10 MG/ML 20 ML VIAL IV ONE (12:15)
[2020-08-31] MEDS ORDERED: LIDOCAINE HCL 2% 2 ML VIAL/AMP(20MG/ML) INFIL ONE (12:15)
--- NOTE | 2020-08-31 12:18 | GI REPORT ---
Patient Name: Yudith Perez Procedure Date: 08/31/2020 11:54 AM Date of : 1940 Admit Type: Inpatient Age: 79 Gender: Female Attending MD: Josue Vera MD Procedure: Upper GI endoscopy Providers: Josue Vera MD Referring MD: Dayne Pitts Indications: Abnormal CT of the GI tract Medicines: Monitored Anesthesia Care Complications: No immediate complications. Estimated blood loss: None. Estimated Blood Loss: Estimated blood loss: none. Procedure: Pre-Anesthesia Assessment: - Prior Anticoagulants: The patient has taken no previous anticoagulant or antiplatelet agents. - ASA Grade Assessment: II - A patient with mild systemic disease. After obtaining informed consent, the endoscope was passed under direct vision. Throughout the procedure, the patient's blood pressure, pulse, and oxygen saturations were monitored continuously. The Endoscope was introduced through the mouth, and advanced to the second part of duodenum. The upper GI endoscopy was accomplished without difficulty. The patient tolerated the procedure well. Findings: The examined esophagus was normal. Diffuse moderate inflammation characterized by erosions and erythema was found in the gastric antrum. Biopsies were taken with a cold forceps for Helicobacter pylori testing. Estimated blood loss: none. One large, near-complete obstructing non-bleeding cratered duodenal ulcer with no stigmata of bleeding was found in the second portion of the duodenum. Biopsies were taken with a cold forceps for histology from the surrounding mucosa which was abnormal and suspicious for malignancy. Estimated blood loss: none. Impression: - Normal esophagus. - Gastritis. Biopsied. - Non-bleeding duodenal ulcer with no stigmata of bleeding. Biopsied. Recommendation: - [facility] care. - Clear liquid diet today. - Await pathology results. -strongly recommend transfer to a tertiary care center at this time for possible GD stent placement and possible EUS Josue Vera MD 08/31/2020 12:17:24 PM This report has been signed electronically. Note Initiated On: 08/31/2020 11:54 AM Number of Addenda: 0 I attest to the content of the Intraoperative Record and orders documented therein, exceptions below {[id number]}
--- NOTE | 2020-08-31 12:21 | Procedure Note ---
Procedure Note Date of Service August 31, 2020 GI brief procedure note EGD findings: large near complete obstructing duodenal ulcer in the sweep/2nd portion with abnormal malignant appearing mucosa surrounding it. biopsied. no evidence of bleeding. gastritis, biopsied. Recs: protonix 40 mg BID clear liquid diet f/u path results strongly recommend transfer to a tertiary care center at this time for possible advanced GD stent placement and EUS Josue Vera MD Gastroenterology Coding
--- NOTE | 2020-08-31 12:35 | Anesthesiology Progress Note ---
Date of Service August 31, 2020 Anesthesia Post Procedure Vital Signs Vital Signs: Temp Pulse Pulse Resp BP BP Pulse Ox 08/31/20 12:29 84 16 121/65 93 08/31/20 12:14 77 12 91/61 L 98 08/31/20 11:23 98.1 F 83 16 149/57 H 95 08/31/20 07:39 98.2 F 84 16 101/65 95 08/30/20 23:13 98.2 F 91 H 18 135/69 97 08/30/20 21:40 98.1 F 84 18 144/67 H 92 08/30/20 21:24 88 16 135/77 98 08/30/20 19:30 88 19 08/30/20 19:00 97 H 23 08/30/20 18:30 91 H 17 84 L 08/30/20 18:01 92 H 16 157/63 H 94 08/30/20 18:00 94 H 17 94 08/30/20 17:57 95 08/30/20 17:51 107 H 24 08/30/20 17:01 93 H 16 150/79 H 08/30/20 17:00 99 H 90 18 150/79 H 97 08/30/20 16:49 95 H 13 92 08/30/20 16:48 93 H 16 163/72 H 90 08/30/20 15:59 101 H 18 137/83 97 08/30/20 14:43 96.4 F L 79 18 105/68 97 Pain Intensity Lower Abdomen: Pain Intensity: 7 Transfer of Care Handoff Completed per policy Notes Mental Status: alert / awake / arousable and participated in evaluation Patient Amnestic to Procedure: Yes Nausea / Vomiting: adequately controlled Pain: adequately controlled Airway Patency, RR, SpO2: stable & adequate BP & HR: stable & adequate Hydration State: stable & adequate Anesthetic Complications: no major complications apparent and Pt Satisfied with anesthetic care
[2020-08-31] MEDS: ENALAPRIL MALEATE 10 MG TAB PO SCH (14:15)
[2020-08-31] MEDS: PANTOprazole 40 MG TAB PO SCH (14:18)
[2020-08-31] MEDS ORDERED: Nursing to Pharmacy Communication SCH (15:00)
[2020-08-31] MEDS ORDERED: INSULIN ASPART 100 UNITS/ML 3 ML PEN SC SCH (16:30)
--- NOTE | 2020-08-31 16:30 | Discharge Summary ---
Date of Service August 31, 2020 Admission HPI Per Admitting Provider 79 yo F PMHx HTN, HLD, DM2 on insulin therapy, chronic low back pain, dementia presented to ER for about 2 weeks of epigastric burning pain, worse with eating, as well as vomiting for 2 days. Denies fevers or chills, hematemesis, blood in stools, diarrhea. She has taken some Pepto for her discomfort with mild relief. Gallbladder US performed earlier this week which showed absent gallbladder, no duct stones. In ER had CTAP which showed evidence of duodenal ulcer. Hospitalist service consulted for admission, with intention for GI consult for AM evaluation. While in ER patient received IV Protonix, IV Pepcid, and NSS 1L bolus. At time of interview patient reports less abdominal pain, denies SOB, chest pain, nausea, dizziness, headaches. Admission Exam Per Admitting Provider Constitutional: WD/WN, vitals as above Eyes: PERRL, conjunctivae normal, anicteric sclerae ENMT: external ear and nose normal, oropharynx normal Neck: normal visual inspection Respiratory: normal respiratory effort, lungs clear to auscultation Cardiovascular: RRR, no murmur, no edema Gastrointestinal (Abdomen): Inspection/Auscultation: normal bowel sounds Percussion/Palpation: + abdomen tender and abdomen soft; no guarding Musculoskeletal: no cyanosis or clubbing, extremities motor strength 5/5 Skin: no rashes, warm and dry Neurologic: Normal speech. Moves all extremities equally Psychiatric: A+Ox3, euthymic affect (Can be forgetful about past events) Principal Diagnosis Duodenal Ulcer Discharge Exam General: A&O. NAD. Cooperative. HEENT: Atraumatic, normocephalic. Pulm: CTAB A&P. -wheezes, -rales, -rhonchi. Symmetrical chest rise. No increase work of breathing. No respiratory distress. Cardiac: RRR, -mrg. Radial pulses intact and symmetrical. Abdominal: TTP at epigastrum. Soft, ND, bs intact Discharge Data Allergies Allergy/AdvReac Type Severity Reaction Status Date / Time latex Allergy Mild RASH Verified 08/30/20 17:11 Codeine Derivatives Allergy Unknown Unknown Uncoded 08/30/20 17:11 Consultations 08/30/20 20:16 ED Decision to Admit Stat 08/30/20 20:41 Consult Gastroenterology Routine Procedures Performed Operation Date: 08/31/20 16:45 Actual Procedures p EGD Biopsy Cytology - Josue Vera MD Ordered Studies 08/30/20 16:19 CT abd pelvis IV con only Stat CT angio chest PE protocol Stat Hospital Course (1) Duodenal ulcer: Yudith Perez is a 79 yo F with a PMHx HTN, DM2 on insulin therapy, HLD, dementia, chronic low back pain admitted for abdominal pain and vomiting secondary to peptic ulcer disease. Duodenal ulcer Piotr Perez is a 79-year-old female with past medical history as above who presented with intermittent reflux and epigastric pain worsened with meals. Admission CTabdomen showed moderate inflammation adjacent to the second portion of the duodenum with duodenal wall thickening suggestive of duodenal peptic ulcer disease. CTA of the chest did not show any evidence of PE, pneumonia. EKG did not show signs of acute coronary syndrome, troponin was negative, TSH 2 months prior was normal. Of note she was on alendronate prior to admission which was held and oral diclofenac for pain which was held. She was admitted for nausea and pain control and placed on Zofran and Protonix. Gastroenterology was consulted and patient underwent EGD the following morning. EGD showed diffuse moderate inflammation of the gastric antrum in addition to one large near complete obstructing nonbleeding cratered duodenal ulcer suspicious for malignant ulceration. Biopsies of the ulceration were taken at time of EGD. Biopsies from the gastric antrum were taken and sent for H. pylori testing. Due to near complete obstruction patient was recommended for duodenal stenting which was unable to be performed at [facility], patient was referred for transfer to [facility]. After being accepted she was transferred for further care with pathology reports pending. She remained hemodynamically stable with no signs or symptoms of bleeding during admission. Benign essential hypertension Yudith has a past medical history of essential hypertension on aspirin and ramipril. She was normotensive during admission. Spine was held, ramipril was continued during admission. Osteopenia Alendronate was held as above, tamoxifen was continued during admission. Type 2 diabetes Yudith Campuzano has a history of type 2 diabetes mellitus on insulin and Metformin prior to admission. Her Metformin was held and she was continued on sliding scale insulin with glargine 10 units twice daily with adequate glycemic control during admission. Hyperlipidemia Home ezetimbe was held on admission. She was continued on atorvastatin 40 mg daily. Dementia Continued on home donepezil, no acute encephalopathy appreciated during admission. DVT prophylaxis: The setting of concern for painful potentially bleeding peptic ulcer above pharmacal prophylaxis was deferred, SCDs were used for DVT prophylaxis. (2) Right upper quadrant pain: (3) Anxiety: (4) Diabetes mellitus type 2, uncontrolled, without complications: (5) Dyslipidemia: (6) Benign essential hypertension: (7) Osteopenia: (8) Overweight: (9) Tobacco use: (10) Abnormal CT of the abdomen: Total Time Total Time Spent Total Time Spent (In Minutes): >30 Discharge Plan Discharge Items Patient Disposition: Transfer Acute Care Hospital Reason For Visit: PUD Discharge Diagnosis: obstructing ulcer Activity: Resume your previous activity Non-emergency contact: Primary Care Provider and Door To Door Salesperson Call non-emergency contact if: you have any medication questions and your symptoms worsen Follow-up/Referrals: Daniel Juan III, CRNP [Primary Care Provider] - Diet: Clear liquid Addtl Attending Provider Instructions: per akiko Pending Studies at Discharge: Yes Stand-Alone Forms: [facility] Skilled Items Patient informed of condition?: Yes DNR: No Discharge Level of Care: Other Communicable Disease: No Discharge Prognosis: Other Lines: Peripheral IV Urinary Catheter: No Medications and DC Order Prescriptions: Continued (DME) OneTouch Verio test strips Strip See Dose Instructions .ROUTE .MEDSUPPLY Qty: 200 RF: 2 metformin 500 mg tablet extended release 24 hr 500 mg PO DAILY 90 Days Qty: 90 RF: 3 (DME) Dexcom G6 Transmitter Device See Rx Instructions .MEDSUPPLY Qty: 1 RF: 1 (DME) Dexcom G6 Sensor Device See Rx Instructions .MEDSUPPLY Qty: 3 RF: 5 ezetimibe 10 mg tablet 10 mg PO DAILY Qty: 90 RF: 1 atorvastatin 40 mg tablet 40 mg PO DAILY Qty: 90 RF: 1 diclofenac sodium 1 % gel 2 g topical DAILY Qty: 100 RF: 1 diclofenac sodium 50 mg tablet,delayed release (DR/EC) 50 mg PO Q12H PRN (Reason: pain) Qty: 90 RF: 1 donepezil [Aricept] 5 mg tablet 5 mg PO DAILY Qty: 90 RF: 1 ramipril 10 mg capsule 10 mg PO BID Qty: 90 RF: 1 tamoxifen 20 mg tablet 20 mg PO DAILY Qty: 90 RF: 1 tramadol 50 mg tablet 50 mg PO .COMPLEX PRN (Reason: pain) Qty: 20 RF: 0 sulfamethoxazole-trimethoprim [Bactrim DS] 800-160 mg tablet 1 tab PO Q12H 10 Days Qty: 20 RF: 0 ondansetron 8 mg tablet,disintegrating 8 mg PO Q8H PRN (Reason: nausea and vomiting) Qty: 20 RF: 0 acetaminophen 500 mg tablet 500 mg PO Q6H PRN (Reason: Pain) RF: 0 aspirin 81 mg tablet,delayed release (DR/EC) 81 mg PO DAILY RF: 0 cyanocobalamin (vitamin B-12) 1,000 mcg capsule 1,000 mcg PO DAILY RF: 0 alendronate 70 mg tablet 70 mg PO WK Qty: 12 RF: 1 (DME) lancets [OneTouch Delica Lancets] 33 gauge misc See Dose Instructions .ROUTE .MEDSUPPLY Qty: 200 RF: 3 (DME) pen needle, diabetic [BD Ultra-Fine Marilyn Pen Needle] 32 gauge x 5/32" needle See Dose Instructions .ROUTE .MEDSUPPLY Qty: 200 RF: 3 psyllium husk [Fiber (psyllium husk)] 0.4 gram capsule 0.4 g PO DAILY RF: 0 calcium carbonate-vitamin D3 [Calcium 600 with Vitamin D3] 600 mg(1,500mg) - 500 unit capsule 1 cap PO BID RF: 0 Novolog Mix 70-30FlexPen U-100 100 unit/mL (70-30) insulin pen See Rx Instructions SQ .COMPLEX Qty: 15 RF: 5 amoxicillin 500 mg capsule 2,000 mg PO ONCE PRN (Reason: ONE HOUR PRIOR TO DENTAL APPT.) RF: 0 Discharge Orders: Discharge Order (Routine); Ordered 08/31/20 Ordered By: Dayne Pitts Admission Data Admit Date/Time: 08/30/20 20:41 Attending Provider: Dayne Pitts Admit Provider: Melodie Rodriguez Primary Care Provider: Daniel Juan III Other Providers: Melodie Rodriguez ; Luis Alberto Vickers Other Interventions: Discharge Summary Assessment (RN) Last Done: 08/31/20 17:13 Supervising Physician Co-Signing Physician Notes I personally examined the patient and verified all rhodes points of history and exam, discussed case, and agree with decision making with Dr Edwards seen post EGD. seen at bedside w GI. d/w pt then, called dtr to update, called to arrange transfer (then when told insurance would not work w [facility] called [facility] to re-arrange transfer), revisited pt to update duodenal ulcer/obstruction - w concern on malignancy. fortunately CT chest/abd/pelvis without adenopathy/liver lesions/etc. unfortunately per GI needing stenting -- transfer for tertiary GI otherwise as above Resident Activity Tracking Resident Involvement: Resident Care Provided Care Provided: Adult Hospital Medicine
--- NOTE | 2020-08-31 18:26 | Billing Data ---
Date of Service August 31, 2020 Coding Level of Care Code D/C Day Management >30 mins
--- NOTE | 2020-09-01 05:33 | Electrocardiogram Report ---
Test Reason : Blood Pressure : / mmHG Vent. Rate : 083 BPM Atrial Rate : 083 BPM P-R Int : 160 ms QRS Dur : 080 ms QT Int : 386 ms P-R-T Axes : 047 -24 036 degrees QTc Int : 453 ms Normal sinus rhythm When compared with ECG of 01-JUN-2017 13:42, QRS axis Shifted right Criteria for Inferior infarct are no longer Present Confirmed by Jean Harris ([id number]) on 09/01/2020 5:32:58 AM Referred By: REFERRED SELF Confirmed By:Jean Harris
[2020-09-01] MEDS ORDERED: ENALAPRIL MALEATE 10 MG TAB PO SCH (09:00)
== END 2020-08-31 18:26 | disposition short-term general hospital (02) ==
LOC: ED 14:37 → 3W 14:37 → SUATTDRO 20:41 → 3W 21:22